=== PATIENT | female | born 1980 | race Caucasian/White ===

== ENCOUNTER 2016-03-08 11:35 | Emergency (ER) | payer OTHER ==
--- NOTE | 2016-03-08 11:41 | PDOC ---
History of Present Illness - General Chief Complaint: Respiratory Stated Complaint: COUGH, BODY ACHES Time Seen by Provider: 03/08/16 11:38 History Source: Patient Exam Limitations: No Limitations - History of Present Illness Initial Comments: 03/08/16 12:06 This is a 35-year-old female with no significant past medical history presented to emergency department with a complaint of cough and body aches. Patient states she was in her usual state of health until yesterday when she noted diffuse body aches, rhinorrhea, a dry cough. Patient noted a temperature of 103 today and because of this decided to come to the ER. Patient has not taken either Motrin or Tylenol. She attempted taking Mucinex DM for her symptoms which did not help. Patient did not receive a flu vaccination this year. Denies sick contacts or recent travel Patient denies dysuria, flank pain. Denies nausea, vomiting. Patient has noted diarrhea - 3 episodes of watery diarrhea yesterday. PMH: Denies PSH: Gastric sleeve, tubal ligation, tummy tuck Medication: Denies Social: Uses tobacco: 5 cigars per day, denies drug use or alcohol use GENERAL/CONSTITUTIONAL: Yes: fever, chills, weakness, loss of appetite. HEAD, EYES, EARS, NOSE AND THROAT: No: change in vision, ear pain, discharge, sore throat, throat swelling. CARDIOVASCULAR: No: chest pain, lightheadedness, palpitations, syncope RESPIRATORY: Yes: cough No: shortness of breath, wheezing, hemoptysis, stridor. GASTROINTESTINAL: Yes: diarrhea No: nausea, vomiting, abdominal cramping GENITOURINARY: No: dysuria, hematuria, frequency, urgency, flank pain. MUSCULOSKELETAL: Yes: Myalgias, back pain, No: joint pain, pain SKIN: No: lesions, pallor, rash or easy bruising. NEUROLOGIC: No: headache, vertigo, paresthesias, weakness ENDOCRINE: No: unexplained weight gain or loss HEMATOLOGIC/LYMPHATIC: No: anemia, easy bleeding, swelling nodes. GENERAL: The patient is in no acute distress, pt appears uncomfortable. HEAD: Normal with no signs of trauma. EYES: PERRLA, EOMI, sclera anicteric, conjunctiva clear. ENT: Ears normal, nares patent, oropharynx clear without exudates. Moist mucous membranes. NECK: Normal range of motion, supple without lymphadenopathy, JVD, or masses. LUNGS: Breath sounds equal, clear to auscultation bilaterally. No wheezes, and no crackles. HEART: Tachycardiac, regular rhythm, normal S1 and S2 without murmur ABDOMEN: Soft, nontender, normoactive bowel sounds. No guarding, no rebound. No masses palpable. EXTREMITIES: Normal range of motion, no edema. No clubbing or cyanosis. No erythema, or tenderness. NEUROLOGICAL: Cranial nerves II through XII grossly intact. Normal speech. No focal neurological deficits. MUSCULOSKELETAL: Back non-tender to palpation, no CVA tenderness SKIN: Warm, Dry, normal turgor, no rashes or lesions noted. 03/09/16 11:37 Past History - Past Medical History Allergies/Adverse Reactions: Allergies Allergy/AdvReac Type Severity Reaction Status Date / Time No Known Drug Allergies Allergy Verified 03/08/16 11:37 Home Medications: Ambulatory Orders Oseltamivir Phosphate [Tamiflu -] 75 mg PO BID #10 capsule 03/08/16 Anemia: Yes (MENSES RELATED) Asthma: Yes (SEASONAL) Diabetes: No GI Disorders: No Disorders: No Liver Disease: No Thyroid Disease: No - Surgical History Abdominal Surgery: Yes (TUMMY TUCK 2011, Gastric sleeve) - Immunization History Immunization Up to Date: Yes - Psycho/Social/Smoking Cessation Hx Anxiety: No Suicidal Ideation: No Smoking Status: Yes Smoking History: Current every day smoker Have you smoked in the past 12 months: Yes Number of Cigarettes Smoked Daily: 5 'Breaking Loose' booklet given: 11/28/15 Hx Alcohol Use: No Drug/Substance Use Hx: No Substance Use Type: None Medical Decision Making - Medical Decision Making 03/08/16 11:41 03/08/16 12:09 Will do Influenza swab Will do serum Will do CXR Will give Toradol and IV fluids Will re assess 03/08/16 14:34 Influenza + CXR negative Pt states she feels better Will discharge to home Follow up with PMD Clinical Impression: Influenza 03/09/16 11:37 *DC/Admit/Observation/Transfer Diagnosis at time of Disposition: Influenza A - Discharge Dispostion Disposition: HOME Condition at time of disposition: Improved Admit: No - Prescriptions Prescriptions: Oseltamivir Phosphate [Tamiflu -] 75 mg PO BID #10 capsule - Referrals Referrals: Mary Jo Briones NP [Primary Care Provider] - - Patient Instructions Printed Discharge Instructions: DI for Influenza -- Adult Additional Instructions: Ms. Pereira, You have influenza Please take tamiflu as prescribed Please take motrin or tylenol for fevers Please stay hydrated as much as possible Follow up with your primary care physician Return to the ER for any other concerns or complaints
[2016-03-08 11:44] VITALS: BP 124/85; PULSE 84; TEMP 98.5; BMI 25.2
[2016-03-08] MEDS ORDERED: SODIUM CHLORIDE 1,000 ML IV STA (12:05)
[2016-03-08] MEDS ORDERED: KETOROLAC TROMETHAMINE 30 MG/1 ML VIAL IVPUSH ONE (12:05)
[2016-03-08] MEDS ORDERED: KETOROLAC TROMETHAMINE 30 MG/1 ML VIAL ONE (12:34)
== END 2016-03-08 14:55 | disposition home or self-care (01) ==
LOC: FER 11:35
PROC: 3E033GC Introduction of Other Therapeutic Substance into Peripheral Vein, Percutaneous Approach (ICD-10-PCS; principal; 2016-03-08)
PROC: 3E0337Z Introduction of Electrolytic and Water Balance Substance into Peripheral Vein, Percutaneous Approach (ICD-10-PCS; 2016-03-08)
DX: J09.X2 Influenza due to identified novel influenza A virus with other respiratory manifestations (principal); F17.210 Nicotine dependence, cigarettes, uncomplicated; Z98.84 Bariatric surgery status; J45.998 Other asthma; D64.89 Other specified anemias
CPT/HCPCS: 71020-TC; 84703; 87804; 96361; 96374; 99284-25

== ENCOUNTER 2016-07-15 15:47 | Emergency (ER) | payer OTHER ==
[2016-07-15 16:12] VITALS: TEMP 98.3; BMI 23.3
[2016-07-15 19:26] LABS: URINE APPEARANCE CLEAR; URINE BILIRUBIN NEGATIVE (NEGATIVE); URINE BLOOD NEGATIVE (NEGATIVE); URINE COLOR STRAW; URINE GLUCOSE (UA) NEGATIVE (NEGATIVE); URINE KETONE NEGATIVE (NEGATIVE); URINE LEUK ESTERASE NEGATIVE (NEGATIVE); URINE NITRITE NEGATIVE (NEGATIVE); URINE PROTEIN NEGATIVE (NEGATIVE); URINE UROBILINOGEN NEGATIVE E.U./dl (0.2-1.0)
[2016-07-15] MEDS ORDERED: SODIUM CHLORIDE 1,000 ML IV STA (20:12)
--- NOTE | 2016-07-15 20:12 | PDOC ---
History of Present Illness - General History Source: Patient, Old Records Exam Limitations: No Limitations - History of Present Illness Initial Comments: The patient is a 35 year old female with no significant past medical history, who presents to the emergency department today for further evaluation of abdominal pain since yesterday. The patient notes that her pain has been worsening and states that it does not feel like a UTI because she is not experiencing any dysuria and the pain is worse than that of a UTI . She states the pain is located in her suprapubic region and reports associated abdominal pain only on palpation. She notes that she does not have a regular period because she has had a tubal ligation. The patient denies fever, chills, and sweats. The patient denies nausea, vomiting, and diarrhea. The patient denies chest pain, cough, and shortness of breath. PAST MEDICAL HISTORY: Gestational diabetes. PAST SURGICAL HISTORY: Gastric sleeve (s/p 105 lbs. Weight loss), Tubal Ligation. FAMILY HISTORY: No pertinent history reported SOCIAL HISTORY: None reported MEDICATIONS: Reviewed ALLERGIES: As per nursing notes <Lalo Maier - Last Filed: 07/15/16 23:49> <Pascale Goode - Last Filed: 07/17/16 02:24> - General Chief Complaint: Pain Stated Complaint: ABD PAIN, VOMITING Time Seen by Provider: 07/15/16 18:39 Past History <Lalo Maier - Last Filed: 07/15/16 23:49> - Past Medical History Anemia: Yes (MENSES RELATED) Asthma: Yes (SEASONAL) Diabetes: No GI Disorders: No Disorders: No Liver Disease: No Thyroid Disease: No - Surgical History Abdominal Surgery: Yes (TUMMY TUCK 2010, Gastric sleeve) - Immunization History Immunization Up to Date: Yes - Psycho/Social/Smoking Cessation Hx Anxiety: No Suicidal Ideation: No Smoking Status: Yes Smoking History: Current every day smoker Have you smoked in the past 12 months: Yes Number of Cigarettes Smoked Daily: 4 Information on smoking cessation initiated: Yes 'Breaking Loose' booklet given: 07/15/16 Hx Alcohol Use: No Drug/Substance Use Hx: No Substance Use Type: None <Pascale Goode - Last Filed: 07/17/16 02:24> - Past Medical History Allergies/Adverse Reactions: Allergies Allergy/AdvReac Type Severity Reaction Status Date / Time No Known Drug Allergies Allergy Verified 07/15/16 16:12 Home Medications: Ambulatory Orders NK [No Known Home Medication] 07/15/16 Review of Systems - Review of Systems Able to Perform ROS?: Yes Comments:: CONSTITUTIONAL: Absent: fever, chills, diaphoresis, generalized weakness, malaise, loss of appetite HEENT: Absent: rhinorrhea, nasal congestion, throat pain, throat swelling, difficulty swallowing, mouth swelling, ear pain, eye pain, visual Changes CARDIOVASCULAR: Absent: chest pain, syncope, palpitations, irregular heart rate, lightheadedness , peripheral edema RESPIRATORY: Absent: cough, shortness of breath, dyspnea with exertion, orthopnea, wheezing, stridor, hemoptysis GASTROINTESTINAL: Present: suprapubic pain, abdominal pain Absent: abdominal distension, nausea, vomiting, diarrhea, constipation, melena, hematochezia GENITOURINARY: Absent: dysuria, frequency, urgency, hesitancy, hematuria, flank pain, genital pain MUSCULOSKELETAL: Absent: myalgia, arthralgia, joint swelling SKIN: Absent: rash, itching, pallor HEMATOLOGIC/IMMUNOLOGIC: Absent: easy bleeding, easy bruising, lymphadenopathy, frequent infections ENDOCRINE: Absent: unexplained weight gain, unexplained weight loss, heat intolerance, cold intolerance NEUROLOGIC: Absent: headache, focal weakness or paresthesias, dizziness, unsteady gait, seizure, mental status changes, bladder or bowel incontinence PSYCHIATRIC: Absent: anxiety, depression, suicidal or homicidal ideation, hallucinations. <Lalo Maier - Last Filed: 07/15/16 23:49> *Physical Exam - Vital Signs Last Vital Signs Temp Pulse Resp BP Pulse Ox 98.3 F 75 17 135/80 100 07/15/16 16:11 07/15/16 16:11 07/15/16 16:11 07/15/16 16:11 07/15/16 16:11 - Physical Exam Comments: GENERAL: Well developed, well nourished. Awake and alert. No acute distress. HEENT: Normocephalic, atraumatic. PERRLA, EOMI. No conjunctival pallor. Sclera are non- icteric. Moist mucous membranes. Oropharynx is clear. NECK: Supple. Full ROM. No JVD. Carotid pulses 2+ and symmetric, without bruits. No thyromegaly. No lymphadenopathy. CARDIOVASCULAR: Regular rate and rhythm. No murmurs, rubs, or gallops. Distal pulses are 2+ and symmetric. PULMONARY: No evidence of respiratory distress. Lungs clear to auscultation bilaterally. No wheezing, rales or rhonchi. ABDOMINAL: (+) Suprapubic discomfort, diffuse mild abdominal tenderness on palpation. No rebound or guarding. No organomegaly. Normoactive bowel sounds. MUSCULOSKELETAL Normal range of motion at all joints. No bony deformities or tenderness. No CVA tenderness. EXTREMITIES: No cyanosis. No clubbing. No edema. No calf tenderness. SKIN: Warm and dry. Normal capillary refill. No rashes. No jaundice. NEUROLOGICAL: Alert, awake, appropriate. Cranial nerves 2-12 intact. No deficits to light touch and temperature in face, upper extremities and lower extremities. No motor deficits in the in face, upper extremities and lower extremities. Normoreflexic in the upper and lower extremities. Normal speech. Toes are down-going bilaterally. Gait is normal without ataxia. PSYCHIATRIC: Cooperative. Good eye contact. Appropriate mood and affect. <Lalo Maier - Last Filed: 07/15/16 23:49> - Vital Signs Last Vital Signs Temp Pulse Resp BP Pulse Ox 98.3 F 75 17 135/80 100 07/15/16 16:11 07/15/16 16:11 07/15/16 16:11 07/15/16 16:11 07/15/16 16:11 <Pascale Goode - Last Filed: 07/17/16 02:24> ED Treatment Course - LABORATORY CBC & Chemistry Diagram: 07/15/16 20:27 07/15/16 20:27 - ADDITIONAL ORDERS Additional order review: Laboratory Results 07/15/16 19:15 Urine Color Straw Urine Appearance Clear Urine pH 6.0 Urine Protein Negative Urine Glucose (UA) Negative Urine Ketones Negative Urine Blood Negative Urine Nitrite Negative Urine Bilirubin Negative Urine Urobilinogen Negative Ur Leukocyte Esterase Negative - RADIOLOGY Radiograph Interpretation: 07/15/16 23:49 EXAM#: TYPE/EXAM: RESULT: [id number] CT/ABDOMEN PELVIS CT WITH CONTR HISTORY PROVIDED: Right lower quadrant pain. Sequential axial images were obtained from the domes of the diaphragms through the symphysis pubis following the administration of intravenous contrast material. The lung bases are clear. The liver, spleen, pancreas, adrenal glands and kidneys demonstrate no significant abnormalities. The gallbladder is clear. There is no evidence of intra- abdominal or retroperitoneal lymphadenopathy or fluid collections. There is no evidence of pneumoperitoneum, bowel obstruction or intra-abdominal abscess. There is no CT evidence of acute appendicitis or diverticulitis. Examination of the pelvis demonstrates no evidence of pelvic masses, fluid collections or lymphadenopathy. There is no evidence of acute bony pathology. IMPRESSION: No evidence of appendicitis or acute pathology within the abdomen or pelvis. Reported By: Bandar Yancey MD 07/15/16 1395 <Lalo Maier - Last Filed: 07/15/16 23:49> - LABORATORY CBC & Chemistry Diagram: 07/15/16 20:27 07/15/16 20:27 - ADDITIONAL ORDERS Additional order review: Laboratory Results 07/15/16 19:15 Urine Color Straw Urine Appearance Clear Urine pH 6.0 Urine Protein Negative Urine Glucose (UA) Negative Urine Ketones Negative Urine Blood Negative Urine Nitrite Negative Urine Bilirubin Negative Urine Urobilinogen Negative Ur Leukocyte Esterase Negative <Pascale Goode - Last Filed: 07/17/16 02:24> Medical Decision Making - Medical Decision Making 07/17/16 02:22 Non 35-year-old female presented with complaints of lower abdominal pain worsened with urination or sexual intercourse. Urinalysis did not show any urinary tract infection. Imaging studies did not show any abdominal or pelvic surgical emergencies she will follow-up with her statement clerks supervisor <Pascale Goode - Last Filed: 07/17/16 02:24> *DC/Admit/Observation/Transfer - Attestations Scribe Attestion: Documentation prepared by Lalo Maire, acting as medical transcriptionist for Dr. Pascale Goode MD. <Lalo Maier - Last Filed: 07/15/16 23:49> <Pascale Goode - Last Filed: 07/17/16 02:24> Diagnosis at time of Disposition: Abdominal pain Qualifiers: Abdominal location: lower abdomen, unspecified Qualified Code(s): R10.30 - Lower abdominal pain, unspecified - Discharge Dispostion Disposition: HOME Condition at time of disposition: Stable - Referrals Referrals: Mary Jo Briones NP [Primary Care Provider] - Robert Choudhary MD [Staff Physician] - - Patient Instructions Printed Discharge Instructions: DI for Abdominal Pain-Adult Additional Instructions: please followup with your statement clerks supervisor
[2016-07-15 20:41] LABS: BASOPHIL 0.4 % (0-2.0); EOSINOPHIL 6.7 % (0-4.5); MCH 29.4 pg (25.7-33.7); MCHC 33.3 g/dl (32.0-36.0); MEAN CELL VOLUME 88.4 fl (80-96); MEAN PLT VOLUME 7.6 fl (7.5-11.1); PLATELET COUNT 261 K/MM3 (134-434); RDW 12.5 % (11.6-15.6)
[2016-07-15 21:11] LABS: ALBUMIN 3.9 g/dl (3.4-5.0); ANION GAP 9 (8-16); BILIRUBIN,TOTAL 0.6 mg/dL (0.2-1.0); CALCIUM 8.4 mg/dL (8.5-10.1); CO2 26 mmol/L (21-32); CREATININE 0.4 mg/dL (0.55-1.02); GLUCOSE,RANDOM 78 mg/dL (74-106); SGPT/ALT 16 U/L (12-78); TOT PROT 6.8 g/dl (6.4-8.2)
[2016-07-15 21:12] LABS: ALK PHOS 40 U/L (45-117)
[2016-07-15 21:27] LABS: SGOT/AST 19 U/L (15-37)
[2016-07-15] MEDS ORDERED: morphine CARPU-JECT 2 MG/1 ML DISP.SYRIN ONE (22:36)
[2016-07-15] MEDS ORDERED: morphine CARPU-JECT 2 MG/1 ML DISP.SYRIN IVPUSH ONE (22:47)
[2016-07-15 22:52] VITALS: BP 133/74; PULSE 78
== END 2016-07-16 00:13 | disposition home or self-care (01) ==
LOC: JER 15:47
PROC: 3E0337Z Introduction of Electrolytic and Water Balance Substance into Peripheral Vein, Percutaneous Approach (ICD-10-PCS; principal; 2016-07-15)
PROC: 3E033NZ Introduction of Analgesics, Hypnotics, Sedatives into Peripheral Vein, Percutaneous Approach (ICD-10-PCS; 2016-07-15)
DX: R10.30 Lower abdominal pain, unspecified (principal); Z98.84 Bariatric surgery status; F17.210 Nicotine dependence, cigarettes, uncomplicated
CPT/HCPCS: 36415; 74177-TC; 80053; 81003; 83690; 84703; 85025; 87086; 96361; 96374; 99282-25

== ENCOUNTER 2016-08-02 07:09 | Day surgery (SDC) | payer OTHER ==
[2016-07-31 16:49] VITALS: BMI 23.9
[2016-08-02] MEDS ORDERED: MIDAZOLAM HCL 2 MG/2 ML SINGLE DOSE VIAL ONE ×2 (08:37)
[2016-08-02] MEDS ORDERED: PROPOFOL 20 ML ONE ×2 (08:37)
[2016-08-02] MEDS ORDERED: IBUPROFEN 800 MG/8 ML IJ IVPB PRN (08:40)
--- NOTE | 2016-08-02 08:40 | HP ---
History & Physical Update - History History: No Change - Physical Physical: No Change - Assessment Assessment: No Change - Plan Plan: No Change
[2016-08-02] MEDS ORDERED: ACETAMINOPHEN 1000 MG/100 ML VIAL (NON FORMULARY) IVPB ONE (08:41)
[2016-08-02] MEDS ORDERED: DEXTROSE 5%-0.45% SALINE 1,000 ML IV SCH (08:45)
[2016-08-02] MEDS ORDERED: DESFLURANE GAS 240 ML BOTTLE IH ONE (08:51)
[2016-08-02] MEDS ORDERED: ceFAZolin SODIUM 1 GM VIAL IVPB ONE (08:52)
[2016-08-02] MEDS ORDERED: ceFAZolin SODIUM 1 GM VIAL ONE (09:10)
[2016-08-02] MEDS ORDERED: SODIUM CHLORIDE 0.9% P/F 10 ML VIAL IJ ONE (09:10)
[2016-08-02] MEDS ORDERED: ONDANSETRON 4 MG/2 ML VIAL IVPUSH PRN (09:29)
[2016-08-02] MEDS ORDERED: PROMETHAZINE HCL 25 MG/1 ML VIAL IVPUSH PRN (09:29)
[2016-08-02] MEDS ORDERED: LACTATED RINGERS SOLUTION 1,000 ML IV SCH (09:30)
--- NOTE | 2016-08-02 09:31 | OP ---
Operative Note - Note: Operative Date: 08/02/16 Pre-Operative Diagnosis: bladder mass Operation: cysto, bladder biopsy Findings: see dictation Post-Operative Diagnosis: Same as Pre-op
[2016-08-02] MEDS ORDERED: ACETAMINOPHEN INJECTION 100 ML IVPB ONE (10:03)
--- NOTE | 2016-08-02 10:34 | OP ---
DATE OF OPERATION: 08/02/2016 PREOPERATIVE DIAGNOSIS: Bladder mass. POSTOPERATIVE DIAGNOSIS: Bladder mass. PROCEDURE: Cystoscopy and biopsy of bladder mass. FINDINGS: Mass along the ureteric ridge just medial to the left ureteral orifice. This appears to be consistent with the usual appearance of a ureterocele. Mucosa was normal. BIOPSIES: Bladder mass. SURGEON: Russel Guidry MD ANESTHESIA: General, Dr. Walton. ESTIMATED BLOOD LOSS: Minimal. PREOPERATIVE INDICATIONS: The patient is a 35-year-old female with incidentally found bladder mass on an ultrasound. CT scan was negative. She comes to the OR. DESCRIPTION OF PROCEDURE: The patient was brought to the OR. Placed on the table in the supine position. Given general anesthesia and IV antibiotics and placed in the modified lithotomy position. The groin was prepped and draped sterilely. A time-out was performed. Cystoscopy was performed. The urethra appeared to be normal. The bladder itself had some hyperemia throughout; however, no tumors or stones were seen. There is an elevated mass seen along the ureteric ridge medial to the left ureteral orifice. This appears to be consistent with the placement of a ureterocele. There is a family history of a ureterocele. The Ricco biopsy forceps were used to biopsy the surface of this mass, and the biopsy area was then fulgurated with Bovie electrode. Good hemostasis was maintained. The bladder was emptied. The patient was awoken up. RUSSEL GUIDRY M.D. [id number]
[2016-08-02 11:15] VITALS: TEMP 97.6
[2016-08-02 13:08] VITALS: BP 115/70; PULSE 59
--- NOTE | 2016-08-05 11:54 | PATH ---
Surgical Pathology Report Patient Name: AYDEN LEMA [facility]. Rec. #: [id number] /Age/Gender: 1980 (Age: 35) / F Account: [id number] Location: U SURGICAL Taken: 08/02/2016 Received: 08/02/2016 Reported: 08/05/2016 Physicians: Russel Guidry M.D. Specimen(s) Received BLADDER BIOPSY Clinical History Bladder mass Final Diagnosis BLADDER MASS, BIOPSY: FOCALLY HYPERPLASTIC, BENIGN APPEARING UROTHELIAL MUCOSA WITH CHRONIC INFLAMMATION WITH LAMINA PROPRIA EXPANSION, EDEMA AND VASCULAR CONGESTION, AND FOCAL FEATURES SUGGESTIVE OF CYSTITIS CYSTICA. NO CARCINOMA IDENTIFIED. NO MUSCULARIS PROPRIA PRESENT. Electronically Signed Rai Barton M.D. Gross Description Received in formalin, labeled "bladder mass" is a tinoco, irregular portion of soft tissue measuring 0.4 cm in greatest dimension. The specimen is submitted in toto in one cassette. 08/02/201608/02/2016
== END 2016-08-02 12:30 | disposition home or self-care (01) ==
LOC: JASU-SURG 07:09
PROVIDERS: ATTEND Urology
PROC: 0TBB8ZX Excision of Bladder, Via Natural or Artificial Opening Endoscopic, Diagnostic (ICD-10-PCS; principal; 2016-08-02 08:30)
DX: D30.3 Benign neoplasm of bladder (principal)
CPT/HCPCS: 84703; 88305-TC; 94760

== ENCOUNTER 2016-09-13 07:02 | Day surgery (SDC) | payer OTHER ==
[2016-09-11 09:52] VITALS: BMI 23.9
[2016-09-13] MEDS ORDERED: IBUPROFEN 800 MG/8 ML IJ IVPB PRN (08:00)
[2016-09-13] MEDS ORDERED: DEXTROSE 5%-0.45% SALINE 1,000 ML IV SCH (08:00)
[2016-09-13] MEDS ORDERED: ACETAMINOPHEN 1000 MG/100 ML VIAL (NON FORMULARY) IVPB ONE ×2 (08:00→09:40)
--- NOTE | 2016-09-13 08:00 | HP ---
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: Alzheimer's, CVA, Dementia, Migraine, Multiple Sclerosis, Peripheral Neuropathy, Parkinson's, Seizure, Syncope, TIA, Vertigo, Other Cardiovascular: No: AFIB, Aneurysm, Aortic Insufficiency, Aortic Stenosis, CAD, CHF, Deep Vein Thrombosis, HTN, Hyperlipdemia, [place], Mitral Insufficiency, Mitral Stenosis, Murmur, Pulmonary Hypertension, Other Pulmonary: No: Asthma, Bronchitis, Cancer, COPD, O2 Dependent, Pneumonia, Previously Intubated, Pulmonary Embolus, Pulmonary Fibrosis, Sleep Apnea, Other Gastrointestinal: No: Ascites, Cancer, Constipation, Crohn's Disease, Diverticulitis, Diverticulosis, Esophageal Varices, Gastritis, GERD, GI Bleed, Hemorrhoids, Hiatal Hernia, Inflamatory Bowel Disease, Irritable Bowel Disease, Pancreatitis, Peptic Ulcer Disease, Ulcerative Colitis, Other Renal/: Yes: Other (left flank pain.) ...LMP: 12/16/11 - Current Medications Current Medications: Home Medications Medication Instructions Recorded Oxycodone HCl/Acetaminophen 1 tab PO Q4H PRN #10 tablet MDD 6 08/02/16 [Percocet 5-325 mg Tablet -] Satellite Physical Exam - Physical Examination Vital Signs: Vital Signs Period Temp Pulse Resp BP Sys/Byrnes Pulse Ox Last 24 Hr 98.2 F 60 20 122/73 100 General Appearance: Well Nourished, Well Developed, Alert & Oriented x3 Abdomen: Soft, No CVA (left CVA) Satellite Impression/Plan - Impression/Plan Impression: left ureterocele Operative Procedure: incision of left ureterocele Date to be Performed: 09/13/16
[2016-09-13] MEDS ORDERED: ceFAZolin SODIUM 1 GM VIAL IVPB ONE (08:36)
[2016-09-13] MEDS ORDERED: ISOSULFAN BLUE 10 MG/ML VIAL SQ ONE (08:40)
[2016-09-13] MEDS ORDERED: LIDOCAINE HCL 2% JELLY 10 ML CARTRIDGE ONE (09:19)
[2016-09-13] MEDS ORDERED: LIDOCAINE HCL 2% JELLY 10 ML CARTRIDGE TP ONE (09:20)
[2016-09-13] MEDS ORDERED: ACETAMINOPHEN INJECTION 100 ML IVPB ONE (09:36)
[2016-09-13] MEDS ORDERED: oxyCODONE HCL 5 MG TABLET PO PRN (10:26)
[2016-09-13] MEDS ORDERED: ONDANSETRON 4 MG/2 ML VIAL IVPUSH PRN (10:26)
[2016-09-13] MEDS ORDERED: LACTATED RINGERS SOLUTION 1,000 ML IV SCH (10:30)
[2016-09-13 17:23] VITALS: BP 135/83; PULSE 83; TEMP 98
--- NOTE | 2016-11-26 14:07 | OP ---
DATE OF OPERATION: 09/13/2016 PREOPERATIVE DIAGNOSIS: Ureterocele. POSTOPERATIVE DIAGNOSIS: Ureterocele. PROCEDURE: Cystoscopy and incision of ureterocele. ANESTHESIA: General. PREOPERATIVE INDICATIONS: The patient is a 35-year-old female with persistent pelvic pain as well as some left-sided back pain. She was found to have a ureterocele on imaging. She comes to the OR today for incision of ureterocele. OPERATION: The patient was brought to the OR, placed on the table in the supine position, given general anesthesia and IV antibiotics, and placed in the modified lithotomy position. The groin was prepped and draped sterilely. Cystoscopy was performed. What appeared to be ureterocele along the left elizabet-trigone along the ureteral ridge was identified. A small pinhole orifice was noted on the medial aspect of this elevation. Using a cold knife, this was placed into the small pinhole and incised laterally. This resulted in an open ureteral orifice. Areas of bleeding were seen and these were fulgurated. At the time, hemostasis was achieved. At 5:17, the patient was woken up. Dorene [id number]
== END 2016-09-13 13:15 | disposition home or self-care (01) ==
LOC: JASU-SURG 07:02
PROVIDERS: ATTEND Urology
PROC: 0T578ZZ Destruction of Left Ureter, Via Natural or Artificial Opening Endoscopic (ICD-10-PCS; principal; 2016-09-13 08:00)
DX: N28.89 Other specified disorders of kidney and ureter (principal)
CPT/HCPCS: 76000-TC; 76775-TC; 84703; 94760

== ENCOUNTER 2016-09-13 22:22 | Inpatient (IN) | payer OTHER ==
[2016-09-13 22:45] VITALS: BMI 23.8
[2016-09-13] MEDS ORDERED: ONDANSETRON 4 MG/2 ML VIAL IVPB ONE (23:02)
[2016-09-13] MEDS ORDERED: morphine CARPU-JECT 4 MG/1 ML DISP.SYRIN IVPUSH ONE (23:02)
[2016-09-13] MEDS ORDERED: morphine CARPU-JECT 4 MG/1 ML DISP.SYRIN ONE (23:02)
[2016-09-13] MEDS ORDERED: ONDANSETRON 4 MG/2 ML VIAL ONE (23:05)
[2016-09-13 23:21] LABS: BASOPHIL 0.4 % (0-2.0); EOSINOPHIL 0.4 % (0-4.5); MCH 29.8 pg (25.7-33.7); MCHC 33.9 g/dl (32.0-36.0); MEAN CELL VOLUME 87.9 fl (80-96); MEAN PLT VOLUME 7.8 fl (7.5-11.1); NEUTROPHILS 77.1 % (42.8-82.8); PLATELET COUNT 203 K/MM3 (134-434); RDW 12.4 % (11.6-15.6); WHITE BLOOD COUNT 9.8 K/mm3 (4.0-10.0)
--- NOTE | 2016-09-13 23:24 | PDOC ---
History of Present Illness - General Chief Complaint: Pain Stated Complaint: PAIN Time Seen by Provider: 09/13/16 22:39 History Source: Patient, Family Exam Limitations: No Limitations - History of Present Illness Travel History: No Initial Comments: 09/13/16 23:24 35yo Female patient w/ PmHx of Ureterocele presents to ED c/o inability to urinate s/p Incision of left ureterocele by Dr. Guidry. Patient states abdominal pain sudden onset and has not been able to void since 3pm today. Patient contact plastic production machine setter MD Dr. Harp who instructed patient to report to ED. Patient denies fever, CP, diff breathing, back pain, n/v/d or any other complaints. Timing/Duration: reports: getting worse Quality: reports: severe Abdominal Pain Onset Location: reports: suprapubic Pain Radiation: reports: no radiation Activities at Onset: denies: none, exertion, emotional upset, rest, sleep, no specific activity, eating, working, sexual intercourse, other Treatment Prior to Arrive: worse with: analgesics, antacids, cold pack, heat, laxative, enema, other Aggravating Factors: worse with: None, Defecation, Eating, Emotional upset, Exertion, [place], Movement, Voiding, Change in position Alleviating Factors: worse with: None, Belching, Shallow Breathing, Defecation, Eating, Holding Breath, Passing Gas, Change in Position, Rest, Voiding, Vomiting Past History - Travel Traveled outside of the country in the last 30 days: No Close contact w/someone who was outside of country & ill: No - Past Medical History Allergies/Adverse Reactions: Allergies Allergy/AdvReac Type Severity Reaction Status Date / Time No Known Drug Allergies Allergy Verified 09/13/16 07:38 Home Medications: Ambulatory Orders Oxycodone HCl/Acetaminophen [Percocet 10-325 mg Tablet] 1 each PO Q4HWA PRN #20 tablet MDD 6 09/13/16 Anemia: Yes (MENSES RELATED) Asthma: Yes Cancer: No Cardiac Disorders: No CVA: No COPD: No CHF: No Dementia: No Diabetes: No GI Disorders: No Disorders: No HTN: No Hypercholesterolemia: No Liver Disease: No Seizures: No Thyroid Disease: (WAS DISCHARGED AND CAME BACK STAYED 4 DAYS) - Surgical History Abdominal Surgery: Yes (BAKARI LOPEZ 2010 GASTRIC SLEEVE) - Reproductive History Is Patient Now?: No - Immunization History Immunization Up to Date: Yes - Psycho/Social/Smoking Cessation Hx Anxiety: No Suicidal Ideation: No Smoking Status: Yes Smoking History: Unknown if ever smoked Have you smoked in the past 12 months: Yes Number of Cigarettes Smoked Daily: 4 Information on smoking cessation initiated: No 'Breaking Loose' booklet given: 09/11/16 Hx Alcohol Use: No Drug/Substance Use Hx: No Substance Use Type: None Hx Substance Use Treatment: No Abd/GI Specific PMHX - Complaint Specific PMHX Colitis: No Diverticulitis: No Gall Bladder Disease: No GERD: No Hepatitis: No Irritable Bowel Synd (IBS): No Pancreatitis: No GI Ulcer Disease: No Review of Systems - Review of Systems Able to Perform ROS?: Yes Is the patient limited Lithuanian proficient: No ABD/GI: Yes: Abdominal Distended, Other (Abdominal/Supra Pubic Tenderness/Pain) . No: Constipated, Diarrhea, Nausea, Poor Appetite, Poor Fluid Intake, Vomiting : Yes: Dysuria, Hematuria All Other Systems: Reviewed and Negative *Physical Exam - Vital Signs Last Vital Signs Temp Pulse Resp BP Pulse Ox 98.4 F 68 17 132/80 100 09/13/16 22:35 09/13/16 22:35 09/13/16 22:35 09/13/16 22:35 09/13/16 22:35 - Physical Exam General Appearance: Yes: Nourished, Appropriately Dressed, Apparent Distress, Severe Distress. No: Mild Distress, Moderate Distress Neck: positive: Trachea midline, Normal Thyroid, Supple. negative: Stridor, Lymphadenopathy (R), Lymphadenopathy (L) Respiratory/Chest: positive: Lungs Clear, Normal Breath Sounds. negative: Chest Tender, Respiratory Distress, Accessory Muscle Use, Labored Respiration, Rapid RR Cardiovascular: positive: Regular Rhythm, Regular Rate Gastrointestinal/Abdominal: positive: Normal Bowel Sounds, Tender, Distended, Guarding, Tenderness (Supra Pubic). negative: Soft (Firm) Musculoskeletal: positive: Normal Inspection. negative: CVA Tenderness Extremity: positive: Normal Capillary Refill, Normal Inspection, Normal Range of Motion. negative: Pedal Edema, Swelling, Calf Tenderness, Erythema, Inflammation Integumentary: positive: Normal Color, Dry, Warm. negative: Erythema, Moist, Hives, Swelling Neurologic: positive: canvas marker II-XII NML intact, Fully Oriented, Alert, Normal Mood/ Affect, Normal Response, Motor Strength 07/05 ED Treatment Course - LABORATORY CBC & Chemistry Diagram: 09/13/16 23:05 09/13/16 23:05 - Medications Given in the ED: ED Medications Discontinued Medications Generic Name Dose Route Start Last Admin Trade Name Freq PRN Reason Stop Dose Admin Morphine Sulfate 4 mg 09/13/16 23:02 09/13/16 23:04 Morphine Injection - IVPUSH 09/13/16 23:03 4 mg ONCE ONE Administration Ondansetron HCl 4 mg 09/13/16 23:02 09/13/16 23:06 Zofran Injection IVPB 09/13/16 23:03 4 mg ONCE ONE Administration *DC/Admit/Observation/Transfer Diagnosis at time of Disposition: Bladder outflow obstruction Hematuria Qualifiers: Hematuria type: gross Qualified Code(s): R31.0 - Gross hematuria - Discharge Dispostion Condition at time of disposition: Fair Admit: Yes
[2016-09-13 23:50] LABS: ALBUMIN 3.1 g/dl (3.4-5.0); ALK PHOS 36 U/L (45-117); ANION GAP 8 (8-16); BILIRUBIN,TOTAL 0.3 mg/dL (0.2-1.0); CALCIUM 7.7 mg/dL (8.5-10.1); CO2 24 mmol/L (21-32); CREATININE 0.4 mg/dL (0.55-1.02); GLUCOSE,RANDOM 129 mg/dL (74-106); SGOT/AST 13 U/L (15-37); SGPT/ALT 13 U/L (12-78); TOT PROT 5.6 g/dl (6.4-8.2)
[2016-09-13 23:55] LABS: URINE APPEARANCE CLOUDY; URINE BILIRUBIN NEGATIVE (NEGATIVE); URINE GLUCOSE (UA) 3+ (NEGATIVE); URINE KETONE NEGATIVE (NEGATIVE); URINE LEUK ESTERASE NEGATIVE (NEGATIVE); URINE NITRITE NEGATIVE (NEGATIVE); URINE UROBILINOGEN NEGATIVE mg/dL (0.2-1.0)
[2016-09-13 23:56] LABS: URINE BLOOD 1+ (NEGATIVE); URINE PROTEIN 3+ (NEGATIVE)
[2016-09-13 23:57] LABS: URINE COLOR YELLOW
[2016-09-14 00:10] LABS: URINE RBC 25 /hpf (0-3); URINE WBC <1 /hpf (3-5)
--- NOTE | 2016-09-14 00:24 | PDOC ---
*Physical Exam - Vital Signs Last Vital Signs Temp Pulse Resp BP Pulse Ox 98.4 F 68 17 132/80 100 09/13/16 22:35 09/13/16 22:35 09/13/16 22:35 09/13/16 22:35 09/13/16 22:35 ED Treatment Course - LABORATORY CBC & Chemistry Diagram: 09/14/16 07:50 09/14/16 07:50 - ADDITIONAL ORDERS Additional order review: Laboratory Results 09/13/16 09/13/16 23:18 23:05 Sodium 143 Potassium 3.7 Chloride 111 H Carbon Dioxide 24 Anion Gap 8 BUN 8 Creatinine 0.4 L Creat Clearance w eGFR > 60 Random Glucose 129 H D Calcium 7.7 L Total Bilirubin 0.3 D AST 13 L D ALT 13 Alkaline Phosphatase 36 L Total Protein 5.6 L Albumin 3.1 L D Urine Color Yellow Urine Appearance Cloudy Urine pH 7.0 Urine Protein 3+ H Urine Glucose (UA) 3+ H Urine Ketones Negative Urine Blood 1+ H Urine Nitrite Negative Urine Bilirubin Negative Urine Urobilinogen Negative Ur Leukocyte Esterase Negative Urine RBC 25 Urine WBC <1 Urine HCG, Qual Negative 09/13/16 23:05 RBC 3.65 MCV 87.9 MCHC 33.9 RDW 12.4 MPV 7.8 Neutrophils % 77.1 D Lymphocytes % 13.9 D Monocytes % 8.2 Eosinophils % 0.4 D Basophils % 0.4 - Medications Given in the ED: ED Medications Discontinued Medications Generic Name Dose Route Start Last Admin Trade Name Franklin PRN Reason Stop Dose Admin Morphine Sulfate 4 mg 09/13/16 23:02 09/13/16 23:04 Morphine Injection - IVPUSH 09/13/16 23:03 4 mg ONCE ONE Administration Ondansetron HCl 4 mg 09/13/16 23:02 09/13/16 23:06 Zofran Injection IVPB 09/13/16 23:03 4 mg ONCE ONE Administration Medical Decision Making - Medical Decision Making 09/14/16 00:24 Pt seen by the Advanced Practice Provider under my direct supervision Ancillary studies reviewed I agree with plan as outlined by the Advanced Practice Provider SHAVONNE Angel *DC/Admit/Observation/Transfer Diagnosis at time of Disposition: Hematuria, Bladder outlet obstruction - Discharge Dispostion Condition at time of disposition: Fair
[2016-09-14 00:38] LABS: INR 1.14 (0.82-1.09); PROTHROMBIN TIME (PATIENT) 12.6 SEC (9.98-11.88)
[2016-09-14 00:41] LABS: ACTIVATED PTT 31.6 SECONDS (26.9-34.4)
[2016-09-14] MEDS ORDERED: HYDROmorphone HCL CARPU-JECT 1 MG/1 ML DISP.SYRIN IVPUSH ONE (02:03)
[2016-09-14] MEDS ORDERED: HYDROmorphone HCL CARPU-JECT 1 MG/1 ML DISP.SYRIN ONE ×2 (02:04→03:16)
[2016-09-14] MEDS ORDERED: SODIUM CHLORIDE 1,000 ML IV STA (02:24)
[2016-09-14] MEDS ORDERED: HYDROmorphone HCL CARPU-JECT 1 MG/1 ML DISP.SYRIN IVPB STA (03:15)
--- NOTE | 2016-09-14 03:42 | HP ---
CHIEF COMPLAINT: hematuria PCP: Dr. Melida Weston HISTORY OF PRESENT ILLNESS: 35 yr old woman with a history of urinary hesitancy/dysuria presented to ED with suprapubic pain and edna hematuria since 3 pm Friday. She underwent an outpatient procedure(incision of left ureterocele 09/13/2016) without complications. She began having hematuria with increased frequency of urination( every 2 mins) with pain around 3pm, initially she thought it was expected given her earlier procedure, then she began to have intractable suprapubic pain 10/10 not relieved by percocet and with bleeding from her urethera that she felt was not combined with urine. Her drove her to the ED. started having chills in the ED. has not had a bowel movement since the procedure. Denies fever, n/v, headache, sob, vaginal discharge. ED course: Patient's pain improved when wilder was placed and required several administrations of dilauded for full relief. SHAVONNE Angel discussed case with Dr. Harp, who recommended to place wilder with continous bladder irrigation, keep pt NPO and she will be evaluated tomorrow by urology. HOME MEDICATIONS: Home Medications Medication Instructions Recorded Oxycodone HCl/Acetaminophen 1 each PO Q4HWA PRN #20 tablet MDD 09/13/16 [Percocet 10-325 mg Tablet] 6 REVIEW OF SYSTEMS CONSTITUTIONAL: Present: chills, Absent: fever, diaphoresis, generalized weakness, malaise, loss of appetite, weight change CARDIOVASCULAR: Absent: chest pain, syncope, palpitations, irregular heart rate, lightheadedness , peripheral edema RESPIRATORY: Absent: cough, shortness of breath, GASTROINTESTINAL: Present: suprapubic distention and pain Absent: nausea, vomiting, diarrhea, constipation, melena, hematochezia GENITOURINARY: Present: dysuria, frequency, hematuria Absent: urgency, hesitancy, flank pain, genital pain PHYSICAL EXAMINATION GENERAL: Awake, alert, and fully oriented, in no acute distress. HEAD: Normal with no signs of trauma. EYES: Pupils equal, round and reactive to light, extraocular movements intact, sclera anicteric, conjunctiva clear. EARS, NOSE, THROAT: Ears normal, nares patent, oropharynx clear without exudates. Moist mucous membranes. NECK: Normal range of motion, supple without lymphadenopathy, JVD, or masses. LUNGS: Breath sounds equal, clear to auscultation bilaterally. No wheezes, and no crackles. No accessory muscle use. HEART: Regular rate and rhythm, normal S1 and S2 without murmur, rub or gallop. ABDOMEN: Soft, nontender, not distended, normoactive bowel sounds, no guarding, no rebound, no masses. well healed scars. obturator and psoas' negative MUSCULOSKELETAL: Normal range of motion at all joints. No bony deformities or tenderness. No CVA tenderness. UPPER EXTREMITIES: 2+ radial pulses, warm, well-perfused. No cyanosis. No clubbing. No peripheral edema. LOWER EXTREMITIES: 2+ dp pulses, warm, well-perfused. No calf tenderness. No peripheral edema. NEUROLOGICAL: Cranial nerves II-XII intact. Normal speech. 5/5 handgrip, 5/5 hip extension. ASSESSMENT/PLAN: 35 yr old woman s/p recent incision of ureterocele presents with intractable suprapubic pain and hematuria. #Hematuria - likely due to insicion of ureterocele - wilder with continuous bladder irrigation - renal, bladder ultrasound - pt required 24fr wilder change x3 due to clots causing intractable pain, Dr. Harp called. He will be coming to see her now to take her to the OR now for cystoscopy, no requirement for imaging prior, low suspicion for bladder perforation or abscess #Pain - likely due to clots in wilder causing outflow obstruction, continue CBI with wilder flushing and replacement until seen by Dr. Harp - dilaudid 1mg prn #dvt - contraindicated for ac due to hematuria, scd's #diet - npo due to plan for OR Visit type - Emergency Visit Emergency Visit: Yes ED Registration Date: 09/13/16 Care time: The patient presented to the Emergency Department on the above date and was hospitalized for further evaluation of their emergent condition. - New Patient This patient is new to me today: Yes Date on this admission: 09/13/16 - Critical Care Critical Care patient: No
[2016-09-14] MEDS ORDERED: SODIUM CHLORIDE 1,000 ML IV SCH ×2 (03:45→08:03)
[2016-09-14] MEDS: HYDROmorphone HCL CARPU-JECT 1 MG/1 ML DISP.SYRIN IVPUSH STA ×2 (03:53→04:12)
--- NOTE | 2016-09-14 03:58 | HP ---
CHIEF COMPLAINT: hematuria for past 12 hours PCP: Melida Weston HISTORY OF PRESENT ILLNESS: 35 year old F with PMH recent incision of ureterocele (done yesterday morning) presents to ED after she started noticing blood in her urine yesterday at 3pm. As per patient, she had hematuria with clumping and frequency- she was urinating every two minutes. Her hematuria was accompanied with severe knife- like suprapubic, nonradiating pain during this time. The pain was a 10/10 when urinating, and a 9/10 when not urinating. Pt took one perkoset, but it did not alleviate it. She has also felt lightheaded during this time. Since the pain was so severe, she tried to reach out to her surgeon, Dr. Guidry. She was unable to get in touch with him, but his colleague told her to come to the ED. Denies fever, chills, chest pain, N/V/D, back pain, or blurry vision. ER course was notable for: (1) excessive hematuria (2) urine: 3+urine protein, blood, 3+ glucose (3) was given dilaudid and morphine in ED Recent Travel: no PAST MEDICAL HISTORY: ureterocele, asthma, gestational diabetes PAST SURGICAL HISTORY: 2 C-sections, tummy tuck, L ureteral stent for kidney stone (2 years ago), gastric sleeve, hemorrhoidectomy Social History: Smoking: has smoked 8 cigarettes a day for 21 years Alcohol: socially Drugs: denies Family History: Brother: stage 3 CKD, HTN. Mother- HTN Allergies No Known Drug Allergies Allergy (Verified 09/13/16 07:38) HOME MEDICATIONS: Home Medications Medication Instructions Recorded Oxycodone HCl/Acetaminophen 1 each PO Q4HWA PRN #20 tablet MDD 09/13/16 [Percocet 10-325 mg Tablet] 6 REVIEW OF SYSTEMS CONSTITUTIONAL: Absent: fever, chills, diaphoresis, generalized weakness, malaise, loss of appetite, weight change HEENT: Absent: rhinorrhea, nasal congestion, throat pain, throat swelling, difficulty swallowing, mouth swelling, ear pain, eye pain, visual changes CARDIOVASCULAR: +lightheadedness Absent: chest pain, syncope, palpitations, irregular heart rate, lightheadedness , peripheral edema RESPIRATORY: Absent: cough, shortness of breath, dyspnea with exertion, orthopnea, wheezing, stridor, hemoptysis GASTROINTESTINAL: Absent: abdominal pain, abdominal distension, nausea, vomiting, diarrhea, constipation, melena, hematochezia GENITOURINARY: +dysuria, +frequency, +hematuria Absent: dysuria, frequency, urgency, hesitancy, hematuria, flank pain, genital pain MUSCULOSKELETAL: Absent: myalgia, arthralgia, joint swelling, back pain, neck pain SKIN: Absent: rash, itching, pallor HEMATOLOGIC/IMMUNOLOGIC: Absent: easy bleeding, easy bruising, lymphadenopathy, frequent infections ENDOCRINE: Absent: unexplained weight gain, unexplained weight loss, heat intolerance, cold intolerance NEUROLOGIC: Absent: headache, focal weakness or paresthesias, dizziness, unsteady gait, seizure, mental status changes, bladder or bowel incontinence PSYCHIATRIC: Absent: anxiety, depression, suicidal or homicidal ideation, hallucinations. PHYSICAL EXAMINATION GENERAL: Awake, alert, and fully oriented, screaming in pain when urinating HEAD: Normal with no signs of trauma. EYES: Pupils equal, round and reactive to light, extraocular movements intact, sclera anicteric, conjunctiva clear. EARS, NOSE, THROAT: Oropharynx clear without exudates. NECK: Normal range of motion, supple without lymphadenopathy, JVD, or masses. LUNGS: Breath sounds equal, clear to auscultation bilaterally. No wheezes, and no crackles. No accessory muscle use. HEART: Regular rate and rhythm, normal S1 and S2 without murmur, rub or gallop. ABDOMEN: Soft, nontender, not distended, normoactive bowel sounds, no guarding, no rebound, no masses. (pt had just dilaudid prior to examination), no rebound tenderness, no CVA tenderness MUSCULOSKELETAL: Normal range of motion at all joints. No bony deformities or tenderness. No CVA tenderness. UPPER EXTREMITIES: 2+ radial pulses, no peripheral edema. LOWER EXTREMITIES: 2+ posterior tibial pulses, no calf tenderness. No peripheral edema. NEUROLOGICAL: Cranial nerves II-XII intact. ASSESSMENT/PLAN: 35 year old F with PMH incision of ureterocele (done yesterday morning) presents to ED after she started noticing blood in her urine yesterday at 3pm. Patient is being admitted for hematuria secondary to s/p ureterocele incision. 1. Hematuria secondary to s/p ureterocele incision -Souza changed three times due to clots, continue to flush -s/p ureterocele incision done on Friday morning -monitor CBC, BMP -hydration IV NS 75 mls/hr -NPO for possible ureteral stent placement tomorrow -Dilaudid 1mg PRN -Renal, bladder U/S -Cystoscopy stat f/u 2. Asthma -has not had recent asthma exacerbations -not active for this admission 3. DVT prophylaxis -bleeding so SCD's Visit type - Emergency Visit Emergency Visit: Yes ED Registration Date: 09/14/16 Care time: The patient presented to the Emergency Department on the above date and was hospitalized for further evaluation of their emergent condition. - New Patient This patient is new to me today: Yes Date on this admission: 09/14/16 - Critical Care Critical Care patient: No
[2016-09-14] MEDS ORDERED: HYDROmorphone HCL CARPU-JECT 1 MG/1 ML DISP.SYRIN IVPB ONE (04:21)
--- NOTE | 2016-09-14 04:23 | PN ---
Teaching Attending Note Name of Resident: Irais Dillon ATTENDING PHYSICIAN STATEMENT I saw and evaluated the patient. Chart, data, imaging reviewed I reviewed the resident's note and discussed the case with the resident. I agree with the resident's findings and plan as documented. SUBJECTIVE: 35 yr old woman with a history of left sided nephrolithiasis s/p stent placement, migration, and removal 2 years ago, ureterocele s/p incision of left ureterocele 09/13/2016 c/o edna hematuria, severe suprapubic pain shortly after procedure was performed after she was d/c home. Pain was not relieved by Percocet. Clots found to be passing when patient attempted to urinate. She denied diarrhea , nausea, and vomiting. No recent trauma. No blood thinners or antiplatelet agents. OBJECTIVE: Last Vital Signs Temp Pulse Resp BP Pulse Ox 98.2 F 76 18 144/58 100 09/14/16 06:00 09/14/16 06:00 09/14/16 06:00 09/14/16 06:00 09/14/16 04:47 General- patient was in distress, aaox3, not short of breath HEENT atraumatic, normocephalic, moist oral mucosa Neck supple CV- s1+s2+ RRR Chest CTA b/l Abdomen soft, NT, no masses Skin- tattoos+ - wilder+, +hematuria Laboratory Last Values WBC 9.8 K/mm3 (4.0-10.0) 09/13/16 23:05 RBC 3.65 M/mm3 (3.60-5.2) 09/13/16 23:05 Hgb 10.9 GM/dL (10.7-15.3) D 09/13/16 23:05 Hct 32.1 % (32.4-45.2) L D 09/13/16 23:05 MCV 87.9 fl (80-96) 09/13/16 23:05 MCH 29.8 pg (25.7-33.7) 09/13/16 23:05 MCHC 33.9 g/dl (32.0-36.0) 09/13/16 23:05 RDW 12.4 % (11.6-15.6) 09/13/16 23:05 Plt Count 203 K/MM3 (134-434) D 09/13/16 23:05 MPV 7.8 fl (7.5-11.1) 09/13/16 23:05 Neutrophils % 77.1 % (42.8-82.8) D 09/13/16 23:05 Lymphocytes % 13.9 % (8-40) D 09/13/16 23:05 Monocytes % 8.2 % (3.8-10.2) 09/13/16 23:05 Eosinophils % 0.4 % (0-4.5) D 09/13/16 23:05 Basophils % 0.4 % (0-2.0) 09/13/16 23:05 INR 1.14 (0.82-1.09) 09/14/16 00:16 PTT (Actin FS) 31.6 SECONDS (26.9-34.4) 09/14/16 00:16 Sodium 143 mmol/L (136-145) 09/13/16 23:05 Potassium 3.7 mmol/L (3.5-5.1) 09/13/16 23:05 Chloride 111 mmol/L (98-107) H 09/13/16 23:05 Carbon Dioxide 24 mmol/L (21-32) 09/13/16 23:05 Anion Gap 8 (8-16) 09/13/16 23:05 BUN 8 mg/dL (7-18) 09/13/16 23:05 Creatinine 0.4 mg/dL (0.55-1.02) L 09/13/16 23:05 Creat Clearance w eGFR > 60 (>60) 09/13/16 23:05 Random Glucose 129 mg/dL (74-106) H D 09/13/16 23:05 Calcium 7.7 mg/dL (8.5-10.1) L 09/13/16 23:05 Total Bilirubin 0.3 mg/dL (0.2-1.0) D 09/13/16 23:05 AST 13 U/L (15-37) L D 09/13/16 23:05 ALT 13 U/L (12-78) 09/13/16 23:05 Alkaline Phosphatase 36 U/L (45-117) L 09/13/16 23:05 Total Protein 5.6 g/dl (6.4-8.2) L 09/13/16 23:05 Albumin 3.1 g/dl (3.4-5.0) L D 09/13/16 23:05 Urine Color Yellow 09/13/16 23:18 Urine Appearance Cloudy 09/13/16 23:18 Urine pH 7.0 (5.0-8.0) 09/13/16 23:18 Urine Protein 3+ (NEGATIVE) H 09/13/16 23:18 Urine Glucose (UA) 3+ (NEGATIVE) H 09/13/16 23:18 Urine Ketones Negative (NEGATIVE) 09/13/16 23:18 Urine Blood 1+ (NEGATIVE) H 09/13/16 23:18 Urine Nitrite Negative (NEGATIVE) 09/13/16 23: Urine Bilirubin Negative (NEGATIVE) 09/13/16: Urine Urobilinogen Negative mg/dL (0.2-1.0) 09/13/16 23:18 Ur Leukocyte Esterase Negative (NEGATIVE) 09/13/16 23:18 Urine RBC 25 /hpf (0-3) 09/13/16 23:18 Urine WBC <1 /hpf (3-5) 09/13/16 23:18 Urine HCG, Qual Negative 09/13/16 23:18 Blood Type A POSITIVE 09/13/16 23: Antibody Screen Negative 09/13/16 23:05 ASSESSMENT AND PLAN: 35 yr old woman s/p incision of ureterocele with severe suprapubic pain and post op hematuria s/p wilder catheter placement, with multiple blood clots, requiring multiple wilder catheter changes. butter production supervisor called and pt to have emergent cystoscopy performed to evaluate source of bleeding. Source of bleeding likely from tract. Rapid response called for patient while on medical floor for severe suprapubic pain, resolved after wilder catheter was replaced. Pain likely secondary to wilder catheter obstruction from blood clot. Improved after wilder catheter change. Pt hemodynamically and clinically stable. -IV fluid hydration -Pain control with Dilaudid 1 mg q1 hr IV PRN -Maintain wilder with continuous bladder irrigation - kidney/bladder U/S - Urgent cystoscopy with Dr. Harp from - dilaudid 1mg prn #dvt ppx -SCDs -avoid heparin due to bleeding #Diet -NPO in anticipation for cystoscopy
--- NOTE | 2016-09-14 05:42 | PN ---
Progress Note (short form) - Note Progress Note: Urology Coverage: 35 y/o female who had ureterocele resection earlier today without reported complications. Was at home and developed abundant bleeding from the bladder. Was in clot retention and unable to void. Presented to ER and has had multiple Souza catheter with irrigations. PE : Pt currently awake and alert without any distress. AVSS Abdomen is soft and mildly tender in the supra pubic region. Urine via Souza is dark pink without clots. Explained to the patient the need for cystoscopy and fulguration of bleeding sites . She understands the procedure and agrees to proceed.
[2016-09-14] MEDS ORDERED: PROPOFOL 20 ML ONE (06:00)
[2016-09-14] MEDS ORDERED: LEVOFLOXACIN 500 MG PREMIX BAG IVPB ONE (06:13)
[2016-09-14] MEDS ORDERED: LEVOFLOXACIN 500 MG IVPB 100 ML IVPB ONE (06:13)
[2016-09-14] MEDS ORDERED: ePHEDrine SULFATE 50 MG/1 ML AMPULE ONE (06:26)
[2016-09-14] MEDS ORDERED: DESFLURANE GAS 240 ML BOTTLE IH ONE (06:38)
[2016-09-14] MEDS ORDERED: OXYCODONE/APAP 5/325MG COMBO TABLET PO PRN (07:27)
[2016-09-14] MEDS ORDERED: ONDANSETRON 4 MG/2 ML VIAL IVPUSH PRN (07:28)
[2016-09-14] MEDS ORDERED: HYDROmorphone HCL CARPU-JECT 2 MG/1 ML DISP.SYRIN ONE (07:33)
--- NOTE | 2016-09-14 07:33 | OP ---
Operative Note - Note: Operative Date: 09/14/16 Pre-Operative Diagnosis: Hematuria/clot retention Operation: Cystooscpoy, evacuation of clots and fulguration of bleeders. Findings: large volume of blood clots in bladder and bleeding from previous ureteroscele resection site on the left. Surgeon: Rakesh Harp Anesthesiologist/LIVESTOCK SHOWMAN: Tex Grimaldo Anesthesia: General Specimens Removed: blood clots Fluid Volume Replaced (mls): 700 Operative Report Dictated: Yes
[2016-09-14] MEDS: HYDROmorphone HCL CARPU-JECT 1 MG/1 ML DISP.SYRIN IVPUSH PRN ×4 (07:40→15:40)
[2016-09-14 08:01] LABS: BASOPHIL 0.3 % (0-2.0); EOSINOPHIL 1.1 % (0-4.5); MCHC 33.5 g/dl (32.0-36.0); MEAN CELL VOLUME 89.5 fl (80-96); MEAN PLT VOLUME 7.3 fl (7.5-11.1); NEUTROPHILS 69.6 % (42.8-82.8); PLATELET COUNT 162 K/MM3 (134-434); RDW 12.5 % (11.6-15.6); WHITE BLOOD COUNT 9.8 K/mm3 (4.0-10.0)
[2016-09-14] MEDS ORDERED: LEVOFLOXACIN 250 MG TABLET (FP) PO SCH (08:15)
[2016-09-14 08:19] LABS: ANION GAP 7 (8-16); CALCIUM 7.2 mg/dL (8.5-10.1); CO2 23 mmol/L (21-32); CREATININE 0.5 mg/dL (0.55-1.02); GLUCOSE,RANDOM 128 mg/dL (74-106)
[2016-09-14] MEDS: SODIUM CHLORIDE 1,000 ML IV SCH ×2 (09:38→15:36)
--- NOTE | 2016-09-14 10:35 | PN ---
Physical Exam: SUBJECTIVE: Patient seen and examined. She is sleepy after procedure. She has no complaints. OBJECTIVE: Vital Signs Period Temp Pulse Resp BP Sys/Byrnes Pulse Ox Last 24 Hr 96.4 F-98.4 F 71-109 16-22 109-146/58-76 100-100 GENERAL: The patient is awake, alert, and fully oriented, in no acute distress. NECK: Supple. LUNGS: Breath sounds equal, clear to auscultation bilaterally, no wheezes, no crackles, no accessory muscle use. HEART: Regular rate and rhythm, S1, S2 without murmur, rub or gallop. ABDOMEN: Soft, nontender, nondistended, normoactive bowel sounds, no guarding, no rebound, no hepatosplenomegaly, no masses. EXTREMITIES: 2+ pulses, warm, well-perfused, no edema. Laboratory Results - last 24 hr 09/14/16 09/14/16 07:50 07:50 WBC 9.8 RBC 3.07 L Hgb 9.2 L D Hct 27.5 L MCV 89.5 MCH 30.0 MCHC 33.5 RDW 12.5 Plt Count 162 D MPV 7.3 L Neutrophils % 69.6 Lymphocytes % 23.1 D Monocytes % 5.9 Eosinophils % 1.1 D Basophils % 0.3 Sodium 145 Potassium 3.6 Chloride 115 H Carbon Dioxide 23 Anion Gap 7 L BUN 6 L D Creatinine 0.5 L D Random Glucose 128 H Calcium 7.2 L Active Medications Generic Name Dose Route Start Last Admin Trade Name Freq PRN Reason Stop Dose Admin Hydromorphone HCl 0.5 mg 09/14/16 07:28 09/14/16 09:59 Dilaudid Injection - IVPUSH 09/17/16 07:29 0.5 mg [id number] PRN Administration PAIN Sodium Chloride 1,000 mls @ 100 mls/hr 09/14/16 09:00 09/14/16 09:38 Normal Saline - IV Not Given ASDIR [facility] Levofloxacin 250 mg 09/14/16 08:15 Levaquin - PO DAILY@0600 [facility] Ondansetron HCl 4 mg 09/14/16 07:28 Zofran Injection IVPUSH 09/14/16 13:29 Q6H PRN NAUSEA AND/OR VOMITING Oxycodone/Acetaminophen 1 combo 09/14/16 07:27 Percocet 5/325 - PO Q4H PRN PAIN LEVEL 1-5 ASSESSMENT/PLAN: This is a 35-year-old woman with a history asthma, gestational diabetes, ureterocele s/p incision 09/13 who presented to the ER with hematuria and inability to urinate. 1. Acute blood loss anemia secondary to hematuria after ureterocele incision - s/p cystoscopy, evacuation of clots, fulguration today - Continue Levaquin - Urine culture pending - Monitor hemoglobin 2. Asthma - Stable Visit type - Emergency Visit Emergency Visit: Yes ED Registration Date: 09/14/16 Care time: The patient presented to the Emergency Department on the above date and was hospitalized for further evaluation of their emergent condition. - New Patient This patient is new to me today: Yes Date on this admission: 09/14/16 - Critical Care Critical Care patient: No - Discharge Referral Referred to [facility] Med P.C.: No
[2016-09-14] MEDS ORDERED: ACETAMINOPHEN 325 MG TABLET (FP) PO PRN (12:54)
[2016-09-14] MEDS: oxyCODONE HCL 5 MG TABLET PO PRN (18:50)
[2016-09-15] MEDS: SODIUM CHLORIDE 1,000 ML IV SCH ×3 (02:07→13:01)
[2016-09-15] MEDS: LEVOFLOXACIN 250 MG TABLET (FP) PO SCH (06:58)
[2016-09-15 08:01] LABS: MCH 30.1 pg (25.7-33.7); MCHC 34.1 g/dl (32.0-36.0); MEAN CELL VOLUME 88.3 fl (80-96); MEAN PLT VOLUME 7.9 fl (7.5-11.1); PLATELET COUNT 143 K/MM3 (134-434); RDW 12.4 % (11.6-15.6); WHITE BLOOD COUNT 7.5 K/mm3 (4.0-10.0)
--- NOTE | 2016-09-15 08:13 | PN ---
Physical Exam: SUBJECTIVE: Patient seen and examined. She complains of headache. OBJECTIVE: Vital Signs Period Temp Pulse Resp BP Sys/Byrnes Pulse Ox Last 24 Hr 96.4 F-99.9 F 65-77 16-20 102-140/46-74 100-100 GENERAL: The patient is awake, alert, and fully oriented, in no acute distress. NECK: Supple. LUNGS: Breath sounds equal, clear to auscultation bilaterally, no wheezes, no crackles, no accessory muscle use. HEART: Regular rate and rhythm, S1, S2 without murmur, rub or gallop. ABDOMEN: Soft, nontender, nondistended, normoactive bowel sounds, no guarding, no rebound, no hepatosplenomegaly, no masses. EXTREMITIES: 2+ pulses, warm, well-perfused, no edema. Laboratory Results - last 24 hr 09/14/16 09/14/16 07:50 07:50 WBC 9.8 RBC 3.07 L Hgb 9.2 L D Hct 27.5 L MCV 89.5 MCH 30.0 MCHC 33.5 RDW 12.5 Plt Count 162 D MPV 7.3 L Neutrophils % 69.6 Lymphocytes % 23.1 D Monocytes % 5.9 Eosinophils % 1.1 D Basophils % 0.3 Sodium 145 Potassium 3.6 Chloride 115 H Carbon Dioxide 23 Anion Gap 7 L BUN 6 L D Creatinine 0.5 L D Random Glucose 128 H Calcium 7.2 L Active Medications Generic Name Dose Route Start Last Admin Trade Name Freq PRN Reason Stop Dose Admin Acetaminophen 325 mg 09/14/16 12:54 Tylenol - PO 09/17/16 12:53 Q4H PRN PAIN Hydromorphone HCl 0.5 mg 09/14/16 07:28 09/14/16 15:40 Dilaudid Injection - IVPUSH 09/17/16 07:29 0.5 mg [id number] PRN Administration PAIN Sodium Chloride 1,000 mls @ 100 mls/hr 09/14/16 09:00 09/15/16 02:07 Normal Saline - IV 100 mls/hr ASDIR NICKI Administration Levofloxacin 250 mg 09/14/16 08:15 09/15/16 06:58 Levaquin - PO 250 mg DAILY@0600 NICKI Administration Oxycodone HCl 5 mg 09/14/16 12:54 09/14/16 18:50 Roxicodone - PO 5 mg Q4H PRN Administration PAIN LEVEL 1-5 ASSESSMENT/PLAN: This is a 35-year-old woman with a history asthma, gestational diabetes, ureterocele s/p incision 09/13 who presented to the ER with hematuria and inability to urinate. 1. Acute blood loss anemia secondary to hematuria after ureterocele incision - s/p cystoscopy, evacuation of clots, fulguration 09/14 - Continue Levaquin - Urine culture negative - Monitor hemoglobin 2. Asthma - Stable 3. Headache - Acetaminophen as needed Visit type - Emergency Visit Emergency Visit: Yes ED Registration Date: 09/14/16 Care time: The patient presented to the Emergency Department on the above date and was hospitalized for further evaluation of their emergent condition. - New Patient This patient is new to me today: No - Critical Care Critical Care patient: No - Discharge Referral Referred to [facility] Med P.C.: No
[2016-09-15 08:26] LABS: ANION GAP 6 (8-16); CALCIUM 7.1 mg/dL (8.5-10.1); CO2 25 mmol/L (21-32); GLUCOSE,RANDOM 81 mg/dL (74-106)
[2016-09-15] MEDS: ACETAMINOPHEN 325 MG TABLET (FP) PO PRN ×2 (08:27→21:37)
[2016-09-15 08:29] LABS: CREATININE 0.3 mg/dL (0.55-1.02)
--- NOTE | 2016-09-15 11:10 | PN ---
Progress Note (short form) - Note Progress Note: Urology POD#1 Pt alert awake c/o feelong weak. AVSS slight tachycardia. Abdomin is soft and not tender. No back or flank pain reported. Urine clear pale yellow.' Souza catheter removed. H/H lower. Repeat requested. CBC WBC 7.5 K/mm3 (4.0-10.0) 09/15/16 06:00 RBC 2.52 M/mm3 (3.60-5.2) L 09/15/16 06:00 Hgb 7.6 GM/dL (10.7-15.3) L D 09/15/16 06:00 Hct 22.2 % (32.4-45.2) L D 09/15/16 06:00 MCV 88.3 fl (80-96) 09/15/16 06:00 MCH 30.1 pg (25.7-33.7) 09/15/16 06:00 MCHC 34.1 g/dl (32.0-36.0) 09/15/16 06:00 RDW 12.4 % (11.6-15.6) 09/15/16 06:00 Plt Count 143 K/MM3 (134-434) 09/15/16 06:00 MPV 7.9 fl (7.5-11.1) 09/15/16 06:00 Neutrophils % 69.6 % (42.8-82.8) 09/14/16 07:50 Lymphocytes % 23.1 % (8-40) D 09/14/16 07:50 Monocytes % 5.9 % (3.8-10.2) 09/14/16 07:50 Eosinophils % 1.1 % (0-4.5) D 09/14/16 07:50 Basophils % 0.3 % (0-2.0) 09/14/16 07:50 Continue IV hydration and observation for hematuria. Stable.
[2016-09-15 12:01] LABS: MCH 29.9 pg (25.7-33.7); MCHC 33.7 g/dl (32.0-36.0); MEAN CELL VOLUME 88.6 fl (80-96); MEAN PLT VOLUME 7.4 fl (7.5-11.1); PLATELET COUNT 161 K/MM3 (134-434); RDW 12.5 % (11.6-15.6); WHITE BLOOD COUNT 8.5 K/mm3 (4.0-10.0)
[2016-09-15] MEDS: oxyCODONE HCL 5 MG TABLET PO PRN (13:43)
--- NOTE | 2016-09-15 13:53 | PN ---
Progress Note (short form) - Note Progress Note: POD #1 - s/p cystoscopy, evacuation of clots, fulguration of bleeders under GA. Pt. doing well, sitting up comfortably in bed. No complaints. No apparent anesthetic complications noted. Continue current care.
[2016-09-16] MEDS: LEVOFLOXACIN 250 MG TABLET (FP) PO SCH (06:34)
[2016-09-16 08:32] LABS: MCHC 34.1 g/dl (32.0-36.0); MEAN CELL VOLUME 87.8 fl (80-96); MEAN PLT VOLUME 7.9 fl (7.5-11.1); PLATELET COUNT 160 K/MM3 (134-434); RDW 12.4 % (11.6-15.6); WHITE BLOOD COUNT 6.4 K/mm3 (4.0-10.0)
[2016-09-16 11:10] VITALS: BP 120/70; PULSE 70; TEMP 99.2
--- NOTE | 2016-09-16 14:37 | PN ---
Teaching Attending Note Name of Resident: Irais Dillon ATTENDING PHYSICIAN STATEMENT I saw and evaluated the patient. I reviewed the resident's note and discussed the case with the resident. I agree with the resident's findings and plan as documented. SUBJECTIVE: OBJECTIVE: Vital Signs Period Temp Pulse Resp BP Sys/Byrnes Pulse Ox Last 24 Hr 98.9 F-99.2 F 70-77 20-20 102-127/40-74 100-100 ASSESSMENT AND PLAN:
--- NOTE | 2016-09-16 15:48 | DS ---
Physical Exam: SUBJECTIVE: Patient seen and examined at bedside. No acute events overnight. Pt resting comfortably, passing flatus, unable to have BM but feels the urge to go. Denies dysuria, hematuria or abdominal pain. OBJECTIVE: Vital Signs Period Temp Pulse Resp BP Sys/Byrnes Pulse Ox Last 24 Hr 98.9 F-99.2 F 70-77 20-20 102-127/40-74 100-100 PHYSICAL EXAM GENERAL: The patient is awake, alert, and fully oriented, in no acute distress. HEAD: Normal with no signs of trauma. EYES: PERRL, extraocular movements intact, sclera anicteric, conjunctiva clear. ENT: oropharynx clear without exudates, moist mucous membranes. NECK: Trachea midline, supple. LUNGS: Breath sounds equal, clear to auscultation bilaterally, no wheezes, no crackles, no accessory muscle use. HEART: Regular rate and rhythm, S1, S2 without murmur, rub or gallop. ABDOMEN: Soft, nontender, nondistended, normoactive bowel sounds, no guarding, no rebound EXTREMITIES: 2+ posterior tibial pulses, warm, well-perfused, no edema. NEUROLOGICAL: Cranial nerves II through XII grossly intact. LABS 09/13/16 09/13/16 09/13/16 23:05 23:05 23:18 RBC 3.65 Hgb 10.9 D Hct 32.1 L D BUN 8 Creatinine 0.4 L Random Glucose 129 H D Alkaline Phosphatase 36 L Total Protein 5.6 L Albumin 3.1 L D Urine Protein 3+ H Urine Glucose (UA) 3+ H Urine Blood 1+ H 09/14/16 09/14/16 09/15/16 07:50 07:50 06:00 RBC 3.07 L 2.52 L Hgb 9.2 L D 7.6 L D Hct 27.5 L 22.2 L D BUN 6 L D Creatinine 0.5 L D Random Glucose 128 H Alkaline Phosphatase Total Protein Albumin Urine Protein Urine Glucose (UA) Urine Blood 09/15/16 09/15/16 09/16/16 06:00 11:55 06:04 RBC 2.94 L 2.59 L Hgb 8.8 L D 7.8 L D Hct 26.1 L D 22.8 L BUN 5 L Creatinine 0.3 L D Random Glucose 81 D Alkaline Phosphatase Total Protein Albumin Urine Protein Urine Glucose (UA) Urine Blood OPERATIONS cystoscopy and evacuation of clots and fulguration of bleeding sites. HOSPITAL COURSE: Date of Admission:09/14/16 Date of Discharge: 09/16/16 Admit diagnosis: hematuria secondary to ureterocele procedure Pre-admission course 35 year old F with PMH recent incision of ureterocele (done yesterday morning) presents to ED after she started noticing blood in her urine yesterday at 3pm. As per patient, she had hematuria with clumping and frequency- she was urinating every two minutes. Her hematuria was accompanied with severe knife- like suprapubic, nonradiating pain during this time. The pain was a 10/10 when urinating, and a 9/10 when not urinating. Pt took one perkoset, but it did not alleviate it. She has also felt lightheaded during this time. Since the pain was so severe, she tried to reach out to her surgeon, Dr. Guidry. She was unable to get in touch with him, but his colleague told her to come to the ED. Denies fever, chills, chest pain, N/V/D, back pain, or blurry vision. ER course was notable for: (1) excessive hematuria (2) urine: 3+urine protein, blood, 3+ glucose (3) was given dilaudid and morphine in ED Hospital course While on the floor, patient passed many clots through her Souza, and had it changed three times. Patient was placed on normal saline and kept NPO initially. She continued to have dysuria and hematuria, losing large quantities of blood. She was in excruciating pain, despite the administration of dilaudid 1mg PRN. After consulting urology, she underwent cystoscopy and evacuation of clots and fulguration of bleeding sites. During this time, patient was placed on Levaquin 250 mg PO for two days and her hemoglobin was monitored. After cystoscopy, patient's condition greatly improved. She reported dysuria, no hematuria. Minutes to complete discharge: 32 Discharge Summary Reason For Visit: HEMATURIA, BLADDER OUTLET OBSTRUCTION, ABD PAIN Condition: Stable - Instructions Diet, Activity, Other Instructions: You were recently in the hospital for blood in your urine. You may gradually resume activity as tolerated, avoid heavy lifting and any abdominal pressure- this may cause bleeding. Drink plenty of fluids to stay hydrated. Follow up with: Dr. Guidry and your primary care physician, Dr. Burt, in a week If you notice any blood in your urine, trouble urinating, experience any severe abdominal pain, become short of breath or have chest pain, please go to the hospital. Referrals: Apryl Youssef MD [Staff Physician] - Russel Guidry MD [Staff Physician] - Melida Albert [Primary Care Provider] - Disposition: HOME - Home Medications Comprehensive Discharge Medication List: Ambulatory Orders Oxycodone HCl/Acetaminophen [Percocet 10-325 mg Tablet] 1 each PO Q4HWA PRN #20 tablet MDD 6 09/13/16 This patient is new to me today: No Emergency Visit: No Critical Care patient: No - Discharge Referral Referred to [facility] Med P.C.: No
--- NOTE | 2016-09-16 17:45 | OP ---
DATE OF OPERATION: 09/14/2016 PREOPERATIVE DIAGNOSES: Hematuria, clot retention. POSTOPERATIVE DIAGNOSES: Hematuria, clot retention. OPERATIVE PROCEDURE: Cystoscopy, evacuation of clots, fulguration of bleeders. SURGEON: Rakesh Harp MD ANESTHESIA: General. Tex Grimaldo MD, gave the anesthesia. DESCRIPTION OF PROCEDURE: The patient was brought to the operating suite. After earlier yesterday, had a transurethral resection of a ureterocele. She was home and had abundance of hematuria and then clot retention. She was brought to the emergency room and admitted. The bladder, despite CBI irrigation, was unable to clear. She was brought to the operating suite and then anesthesia, had all clots evacuated with a Gina syringe. There was a large amount of clots in the bladder. Once the bladder was relatively cleared of clots, using the 26-Latvian resectoscope, the resection site of the ureterocele around the left ureteral orifice was fulgurated, and any bleeding points were cauterized. Again, re-inspection of the entire bladder revealed no evidence of active bleeding. A small piece of the resection loop did break off and was seen in the bladder, and then, a cystoscope was used to extract the piece of the loop outside the bladder. It was lost in a pile of clots in the drainage pool; so, an x-ray was taken, and there was no evidence of any foreign body in the bladder. The patient was placed supine, awakened, and then accompanied to the recovery area in stable condition. It was a clean/contaminated case with a blood loss of approximately 10 mL. RAKESH HARP M.D. [id number]
== END 2016-09-16 12:42 | disposition home or self-care (01) | DRG 791 ==
LOC: JER 22:22 → JERBED 09-14 02:25 → UNDOADMIN 09-14 02:28 → JERBED 09-14 02:28 → J8W 09-14 04:47
PROVIDERS: ADMIT Internal Medicine; ATTEND Internal Medicine
PROC: 0T5B8ZZ Destruction of Bladder, Via Natural or Artificial Opening Endoscopic (ICD-10-PCS; 2016-09-14)
PROC: 0W3R8ZZ Control Bleeding in Genitourinary Tract, Via Natural or Artificial Opening Endoscopic (ICD-10-PCS; 2016-09-14)
PROC: 0TCB8ZZ Extirpation of Matter from Bladder, Via Natural or Artificial Opening Endoscopic (ICD-10-PCS; principal; 2016-09-14 05:30)
DX: N99.820 Postprocedural hemorrhage of a genitourinary system organ or structure following a genitourinary system procedure (principal); Y83.9 Surgical procedure, unspecified as the cause of abnormal reaction of the patient, or of later complication, without mention of misadventure at the time of the procedure; N32.0 Bladder-neck obstruction; D62 Acute posthemorrhagic anemia; J45.909 Unspecified asthma, uncomplicated; R51 Headache; R31.0 Gross hematuria
CPT/HCPCS: 36415; 71010-TC; 74000-TC; 76775-TC; 76856-TC; 80048; 80053; 81003; 81015; 84703; 85025; 85027; 85610; 85730; 86850; 86900; 86901; 87086; 94760; 99284-25

== ENCOUNTER 2016-09-23 10:55 | Emergency (ER) | payer OTHER ==
[2016-09-23 11:03] VITALS: TEMP 98.3; BMI 23.8
--- NOTE | 2016-09-23 11:32 | PDOC ---
History of Present Illness - General Chief Complaint: Chest Pain Stated Complaint: CHEST PAIN Time Seen by Provider: 09/23/16 10:58 History Source: Patient Exam Limitations: No Limitations - History of Present Illness Initial Comments: 09/23/16 11:29 Patient is an otherwise healthy 35 year old smoker with recent surgical procedure and hospitalization who presents with 1 day of chest and left arm pain. Patient first noticed the pain in her left arm upon waking yesterday morning. The pain then spread to her chest and has been getting progressively worse. Pain was mildly relieved with Percocet last night but returned and is currently 10/10. Patient is also feeling weak and has numbness and tingling in her left arm. Endorses headache, dizziness and nausea but denies vomiting, fever and shortness of breath Patient had a bladder cyst removed a week ago and required an emergency cystoscopy and one day hospitalization the following day d/t excessive hemorrhaging. Patient is a 13 year, 1/2 pack a day smoker. Past History - Past Medical History Allergies/Adverse Reactions: Allergies Allergy/AdvReac Type Severity Reaction Status Date / Time No Known Drug Allergies Allergy Verified 09/23/16 10:58 Home Medications: Ambulatory Orders Oxycodone HCl/Acetaminophen [Percocet 10-325 mg Tablet] 1 each PO Q4HWA PRN #20 tablet MDD 6 09/13/16 Cyclobenzaprine HCl [Flexeril -] 10 mg PO TID PRN #7 tablet 09/23/16 Anemia: Yes (MENSES RELATED) Asthma: Yes Cancer: No Cardiac Disorders: No CVA: No COPD: No CHF: No Dementia: No Diabetes: No GI Disorders: No Disorders: Yes (H/O BLADDER CYST) HTN: No Hypercholesterolemia: No Liver Disease: No Seizures: No Thyroid Disease: (WAS DISCHARGED AND CAME BACK STAYED 4 DAYS) - Surgical History Abdominal Surgery: Yes (MARTINMY CATRINACK 2010 GASTRIC SLEEVE) - Immunization History Immunization Up to Date: Yes - Psycho/Social/Smoking Cessation Hx Anxiety: No Suicidal Ideation: No Smoking Status: Yes Smoking History: Current every day smoker Have you smoked in the past 12 months: Yes Number of Cigarettes Smoked Daily: 4 Information on smoking cessation initiated: Yes 'Breaking Loose' booklet given: 09/23/16 Hx Alcohol Use: No Drug/Substance Use Hx: No Substance Use Type: None Hx Substance Use Treatment: No Review of Systems - Review of Systems Able to Perform ROS?: Yes Constitutional: No: Chills, Fever Respiratory: No: Shortness of Breath ABD/GI: Yes: Nausea. No: Vomiting, Other (Pain) Musculoskeletal: Yes: Muscle Pain (left arm) Neurological: Yes: Headache, Numbness (Left arm and hand), Tingling (Left arm and hand), Weakness, Dizziness *Physical Exam - Vital Signs Last Vital Signs Temp Pulse Resp BP Pulse Ox 98.3 F 71 18 115/59 100 09/23/16 10:55 09/23/16 10:55 09/23/16 10:55 09/23/16 10:55 09/23/16 10:55 - Physical Exam General Appearance: Yes: Nourished, Appropriately Dressed HEENT: positive: EOMI, MEHDI Neck: positive: Supple. negative: Lymphadenopathy (R), Lymphadenopathy (L) Respiratory/Chest: positive: Lungs Clear, Decreased Breath Sounds (left ). negative: Chest Tender Cardiovascular: positive: Regular Rhythm, Regular Rate. negative: JVD, Murmur Gastrointestinal/Abdominal: positive: Normal Bowel Sounds. 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, Fully Oriented, Alert, Motor Strength 5/5 (Deminished in UE on left ), Sensory Deficit (Left arm and hand) Heart Score/ECG Review - History History: Slightly suspicious - Electrocardiogram EKG: Normal - Age Age: </= 45 - Risk Factors Risk Factors Heart Score: Yes Smoking History Based on the list above the patient has:: 1-2 risk factors - Troponin Troponin: </= normal limit - Score Heart Score - Total: 1 ED Treatment Course - LABORATORY CBC & Chemistry Diagram: 09/23/16 11:50 09/23/16 11:50 - RADIOLOGY Chest X-Ray Result: Other (No evidence of active pulmonary disease) Medical Decision Making - Medical Decision Making 09/23/16 13:09 35 year old female with history of recent surgery with significant blood loss presenting with arm and chest pain that started at sleep, initially in the arm with progression to the chest and worse with movement. Ddx most concerning for MD or PE but also includes anemia, PNA and muscle strain /spasm Pain management, EKG, CXR, Labs CBC WBC 6.5 K/mm3 (4.0-10.8) 09/23/16 11:50 RBC 3.07 M/mm3 (3.60-5.2) L D 09/23/16 11:50 Hgb 9.4 GM/dl (10.7-15.3) L D 09/23/16 11:50 Hct 27.9 % (32.4-45.2) L D 09/23/16 11:50 MCV 90.9 fl (80-96) 09/23/16 11:50 MCH 30.5 pg (25.7-33.7) 09/23/16 11:50 MCHC 33.6 g/dl (32.0-36.0) 09/23/16 11:50 RDW 11.9 % (11.6-15.6) 09/23/16 11:50 Plt Count 384 K/MM3 (134-434) D 09/23/16 11:50 MPV 7.5 fl (7.5-11.1) 09/23/16 11:50 Neutrophils % 54.7 % (42.8-82.8) 09/23/16 11:50 Lymphocytes % 31.3 % (8-40) 09/23/16 11:50 Monocytes % 6.6 % (3.8-10.2) 09/23/16 11:50 Eosinophils % 6.2 % (0-4.5) H 09/23/16 11:50 Basophils % 1.2 % (0-2.0) 09/23/16 11:50 Mild anemia with a slight improvement from a week ago. CMP Sodium 136 mmol/L (136-145) 09/23/16 11:50 Potassium 3.8 mmol/L (3.5-5.1) 09/23/16 11:50 Chloride 107 mmol/L (98-107) 09/23/16 11:50 Carbon Dioxide 26 mmol/L (22-28) 09/23/16 11:50 Anion Gap 3 (8-16) L 09/23/16 11:50 BUN 11 mg/dl (7-18) D 09/23/16 11:50 Creatinine 0.5 mg/dl (0.6-1.3) L 09/23/16 11:50 Random Glucose 69 mg/dl (74-106) L D 09/23/16 11:50 Calcium 8.7 mg/dl (8.4-10.2) 09/23/16 11:50 Phosphorus 3.7 mg/dl (2.5-4.6) 09/23/16 11:50 Magnesium 1.9 mg/dL (1.8-2.4) 09/23/16 11:50 Creatine Kinase 56 IU/L (26-140) 09/23/16 11:50 Troponin I < 0.03 ng/ml (0.03-0.50) L 09/23/16 11:50 Troponin(-) and other electrolytes within normal limits. EKG shows NSR with normal axis and intervals and no acute ST-segment changes CXR shows no acute pulmonary pathology Vitals within normal limits Patient is much improved with pain medication, no evidence of cardiac or laboratory abnormalities. Likely a transient spasm or arm ischemia from a bad sleeping posture. Patient comfortable going home with Rx for muscle spasms and OTC pain relief. Patient given return precautions. *DC/Admit/Observation/Transfer Diagnosis at time of Disposition: Muscle strain - Discharge Dispostion Disposition: HOME Condition at time of disposition: Stable Admit: No - Prescriptions Prescriptions: Cyclobenzaprine HCl [Flexeril -] 10 mg PO TID PRN #7 tablet PRN Reason: Muscle Spasms - Referrals Referrals: Apryl Youssef MD [Primary Care Provider] - - Patient Instructions Printed Discharge Instructions: DI for Muscle Strain Additional Instructions: Thank you for trusting us with your health care today. I hope you were satisfied with your care. As we discussed your symptoms are most consistent with a muscle strain from sleeping on your arm. The tests we performed were to rule out serious conditions and did not show any acute problems. However, if your symptoms do not improve in the next few days, you should follow up with your primary doctor for pain management. In the mean time we have sent a prescription for a muscle relaxor to your pharmacy and you can take this and over the counter motrin as needed. If you become significantly worse or develop a high fever or breathing difficulties, please return to the ED or dial 911 immediately. Hot baths or heating pads may also help with the pain. - Attestations Physician Attestion: 09/23/16 14:32 I, Dr. Lawrence Mcbride, attest that this document has been prepared under my direction and personally reviewed by me in its entirety. I further attest, that it accurately reflects all work, treatment, procedures and medical decision -making performed by me.
[2016-09-23] MEDS ORDERED: KETOROLAC TROMETHAMINE 30 MG/1 ML VIAL ONE (11:36)
[2016-09-23] MEDS ORDERED: diazePAM 5 MG TABLET ONE (11:36)
[2016-09-23] MEDS ORDERED: diazePAM CARPU-JECT 10 MG/2 ML DISP.SYRIN IVPUSH ONE (11:40)
[2016-09-23] MEDS ORDERED: diazePAM 5 MG TABLET PO ONE (11:53)
[2016-09-23] MEDS ORDERED: KETOROLAC TROMETHAMINE 30 MG/1 ML VIAL IVPUSH ONE (11:54)
--- NOTE | 2016-09-23 12:01 | PDOC ---
Attending Attestation - Resident Resident Name: Lawrence Mcbride - ED Attending Attestation I have performed the following: I have examined & evaluated the patient, The case was reviewed & discussed with the resident, I agree w/resident's findings & plan, Exceptions are as noted - HPI HPI: 09/23/16 11:47 Agree with the resident's HPI as documented in the electronic medical record. - Physicial Exam PE: 09/23/16 11:47 Agree with the resident's physical examination as documented in the electronic medical record. - Medical Decision Making 09/23/16 11:47 35-year-old female with history of ureterocele removal complicated by excessive hematuria and abdominal pain which resolved after cystoscopy presents to the ED today withc/o left-sided chest, arm and shoulder pain since yesterday morning described as sharp, constant and worsened with movement. The patient only has one cardiac RF and is saturating 100% on RA with no tachycardia. DDx includes but is not limited to: MSK spasm, sprain/strain, ACS, PNA, PTX. Given her normal VS and oxygenation along with lack of respiratory complaints, PE is unlikely. Plan: 1. EKG: shows NSR at 67 bpm with normal axis, intervals and no acute ST- segment changes 2. Labs 3. CXR 4. Pain management 5. Observe and re-evaluate 09/23/16 13:58 Addendum: Labs were reviewed and are noted in the EMR. The patient received toradol and valium and is feeling improved and wants to go home. She tolerated PO without nausea or vomiting. Will discharge home and have patient follow-up with PCP within the next week and will advise to return to the ED if her symptoms persist, worsen or new symptoms arise.
[2016-09-23 12:10] LABS: BASOPHIL 1.2 % (0-2.0); EOSINOPHIL 6.2 % (0-4.5); MCH 30.5 pg (25.7-33.7); MCHC 33.6 g/dl (32.0-36.0); MEAN CELL VOLUME 90.9 fl (80-96); MEAN PLT VOLUME 7.5 fl (7.5-11.1); NEUTROPHILS 54.7 % (42.8-82.8); PLATELET COUNT 384 K/MM3 (134-434); RDW 11.9 % (11.6-15.6); WHITE BLOOD COUNT 6.5 K/mm3 (4.0-10.8)
[2016-09-23 12:23] LABS: CPK(DFH) 56 IU/L (26-140)
[2016-09-23 12:24] LABS: ANION GAP 3 (8-16); CALCIUM 8.7 mg/dl (8.4-10.2); CO2 26 mmol/L (22-28); CREATININE 0.5 mg/dl (0.6-1.3); GLUCOSE,RANDOM 69 mg/dl (74-106); MAGNESIUM 1.9 mg/dL (1.8-2.4); PHOSPHOROUS 3.7 mg/dl (2.5-4.6)
[2016-09-23 12:32] LABS: TROPONIN I (DFP) < 0.03 ng/ml (0.03-0.50)
[2016-09-23 14:17] VITALS: BP 108/65; PULSE 68
--- NOTE | 2016-09-24 21:33 | EKG ---
Test Reason : Blood Pressure : / mmHG Vent. Rate : 067 BPM Atrial Rate : 067 BPM P-R Int : 132 ms QRS Dur : 086 ms QT Int : 396 ms P-R-T Axes : -01 061 043 degrees QTc Int : 418 ms NORMAL SINUS RHYTHM WITH SINUS ARRHYTHMIA ST ELEVATION, CONSIDER EARLY REPOLARIZATION, PERICARDITIS, OR INJURY WHEN COMPARED WITH ECG OF 14-SEP-2016 02:39, CHANGES MENTIOMED ABOVE CLINICAL CORRELATION AND REPEAT INDICATED Confirmed by AMALIA LEON MD ([id number]) on 09/24/2016 9:32:52 PM Referred By: SCOTTY GRAY Confirmed By:AMALIA LEON MD
== END 2016-09-23 14:50 | disposition home or self-care (01) ==
LOC: FER 10:55
PROC: 3E0333Z Introduction of Anti-inflammatory into Peripheral Vein, Percutaneous Approach (ICD-10-PCS; principal; 2016-09-23)
DX: M79.1 Myalgia (principal)
CPT/HCPCS: 36415; 71010-TC; 80048; 82550; 83735; 84100; 84484; 84703; 85025; 93005; 96374; 99285-25

== ENCOUNTER 2017-05-28 08:54 | Day surgery (SDC) | payer OTHER ==
[2017-05-27 14:03] VITALS: BMI 26.5
[2017-05-28] MEDS ORDERED: LIDOCAINE HCL 1%, 10 MG/ML (20ML VIAL) ONE (09:32)
[2017-05-28] MEDS ORDERED: HEPARIN NA (PORCINE) 5,000 UNITS/ML 1ML VIAL ONE (09:32)
[2017-05-28] MEDS ORDERED: SODIUM BICARBONATE 8.4% - 50 ML ONE (09:36)
[2017-05-28] MEDS ORDERED: IBUPROFEN 800 MG/8 ML IJ IVPB PRN (11:02)
--- NOTE | 2017-05-28 11:02 | HP ---
History & Physical Update - History History: No Change - Physical Physical: No Change - Assessment Assessment: No Change - Plan Plan: No Change (from may 27 2017)
[2017-05-28] MEDS ORDERED: ACETAMINOPHEN 1000 MG/100 ML VIAL (NON FORMULARY) IVPB ONE (11:03)
[2017-05-28] MEDS ORDERED: MIDAZOLAM HCL 2 MG/2 ML SINGLE DOSE VIAL ONE (11:05)
[2017-05-28] MEDS ORDERED: PROPOFOL 20 ML ONE (11:05)
[2017-05-28] MEDS ORDERED: DEXTROSE 5%-0.45% SALINE 1,000 ML IV SCH (11:15)
[2017-05-28] MEDS ORDERED: ceFAZolin SODIUM 1 GM VIAL ONE (11:23)
[2017-05-28] MEDS ORDERED: ceFAZolin SODIUM 1 GM VIAL IVPB ONE (11:24)
[2017-05-28] MEDS ORDERED: DEXAMETHASONE SOD PHOSPHATE 4 MG/1 ML VIAL ONE (11:29)
[2017-05-28] MEDS ORDERED: HEPARIN NA (PORCINE) 5,000 UNITS/ML 1ML VIAL SQ ONE (11:34)
[2017-05-28] MEDS ORDERED: LIDOCAINE HCL 1%, 10 MG/ML (20ML VIAL) NR ONE (11:34)
[2017-05-28] MEDS ORDERED: SODIUM BICARBONATE 8.4% 50 MEQ/50 ML VIAL IV ONE (11:34)
[2017-05-28] MEDS ORDERED: ONDANSETRON 4 MG/2 ML VIAL IVPUSH PRN (11:50)
[2017-05-28] MEDS ORDERED: oxyCODONE HCL 5 MG TABLET PO PRN (11:50)
[2017-05-28] MEDS ORDERED: LACTATED RINGERS SOLUTION 1,000 ML IV SCH (12:00)
[2017-05-28] MEDS ORDERED: ACETAMINOPHEN INJECTION 100 ML IVPB ONE (12:01)
--- NOTE | 2017-05-28 12:44 | OP ---
DATE OF OPERATION: 05/28/2017 SURGEON: Russel Guidry MD. PREOPERATIVE DIAGNOSIS: Interstitial cystitis. POSTOPERATIVE DIAGNOSIS: Interstitial cystitis. PROCEDURE: Cystoscopy, hydrodistension bladder installation. ANESTHESIA: General, Dr. Pacheco. FINDINGS: Hyperemia consistent with interstitial cystitis. Bladder capacity 550 mL. ESTIMATED BLOOD LOSS: Minimal. DRAINS: None. PREOPERATIVE INDICATIONS: The patient is a 36-year-old female with a history of interstitial cystitis and pelvic pain. She comes to the OR for cystoscopy. DESCRIPTION OF OPERATION: The patient was brought to the OR, placed on the table in the supine position, given general anesthesia, and placed in the modified lithotomy position. The groin was prepped and draped sterilely. Cystoscopy was performed. The urethra appeared to be normal. The bladder itself is as follows: There was hyperemia throughout consistent with IC. The right ureteral orifice was visualized and normal. On the left side there was a previously incised ureterocele. This has not resolved. The UO was visualized and there was clear efflux. The bladder was filled to 550 mmHg pressure, held, and emptied. This was done 3 times. Bladder capacity ranged between 500 and 550 mL. At the end of the case a 50-mL solution of bicarbonate, heparin, lidocaine, and saline was infused into the bladder and left in place. The cystoscope was removed. The patient was woken up. RUSSEL GUIDRY M.D. [id number]
[2017-05-28 12:52] VITALS: BP 116/71; PULSE 56; TEMP 97.5
== END 2017-05-28 13:40 | disposition home or self-care (01) ==
LOC: JASU-SURG 08:54
PROVIDERS: ATTEND Urology
PROC: 0T7B8ZZ Dilation of Bladder, Via Natural or Artificial Opening Endoscopic (ICD-10-PCS; principal; 2017-05-28 10:00)
DX: N30.10 Interstitial cystitis (chronic) without hematuria (principal); N32.89 Other specified disorders of bladder
CPT/HCPCS: 84703; 94760; J0131; J1644

== ENCOUNTER 2017-10-15 08:45 | Day surgery (SDC) | payer OTHER ==
[2017-10-14 13:52] VITALS: BMI 24.7
[2017-10-15] MEDS ORDERED: LIDOCAINE 1%/EPI 1:100000 (20 ML MULTI DOSE VIAL) ONE ×2 (10:49→11:29)
[2017-10-15] MEDS ORDERED: LIDOCAINE HCL/PF 2% SDV 5ML VIAL ONE (10:51)
[2017-10-15] MEDS ORDERED: PROPOFOL 20 ML ONE ×3 (10:51→12:12)
[2017-10-15] MEDS ORDERED: MIDAZOLAM HCL 2 MG/2 ML SINGLE DOSE VIAL ONE (10:51)
[2017-10-15] MEDS ORDERED: ceFAZolin SODIUM 1 GM VIAL ONE (10:51)
--- NOTE | 2017-10-15 10:57 | HP ---
History & Physical Update - History History: No Change - Physical Physical: No Change - Assessment Assessment: No Change - Plan Plan: No Change
[2017-10-15] MEDS ORDERED: ACETAMINOPHEN 1000 MG/100 ML VIAL (NON FORMULARY) IVPB ONE (10:58)
[2017-10-15] MEDS ORDERED: IBUPROFEN 800 MG/8 ML IJ IVPB SCH (11:00)
[2017-10-15] MEDS ORDERED: DEXTROSE 5%-0.45% SALINE 1,000 ML IV SCH (11:00)
[2017-10-15] MEDS ORDERED: ceFAZolin SODIUM 1 GM VIAL IVPB ONE ×2 (11:14→11:15)
[2017-10-15] MEDS ORDERED: LIDOCAINE 1%/EPI 1:100000 (20 ML MULTI DOSE VIAL) IJ ONE ×2 (11:20)
[2017-10-15] MEDS ORDERED: KETOROLAC TROMETHAMINE 30 MG/1 ML VIAL ONE ×2 (11:26→12:01)
[2017-10-15] MEDS ORDERED: LIDOCAINE HCL 1%, 10 MG/ML (50 mL VIAL) IJ ONE ×2 (11:59)
[2017-10-15] MEDS ORDERED: ONDANSETRON 4 MG/2 ML VIAL IVPUSH PRN (12:50)
[2017-10-15] MEDS ORDERED: LACTATED RINGERS SOLUTION 1,000 ML IV SCH (13:00)
[2017-10-15 15:26] VITALS: TEMP 97.6
[2017-10-15 15:32] VITALS: BP 109/57; PULSE 72
--- NOTE | 2017-11-14 10:40 | OP ---
DATE OF OPERATION: 10/15/2017 PREOPERATIVE DIAGNOSIS: Urge urinary incontinence. POSTOPERATIVE DIAGNOSIS: Urge urinary incontinence. PROCEDURE: Stage 1 InterStim lead placement. ANESTHESIA: General. SURGEON: Russel Guidry MD ESTIMATED BLOOD LOSS: Minimal. PREOPERATIVE INDICATIONS: The patient is a 37-year-old female who suffers from urge urinary incontinence that has not responded to medications. She comes for a stage 1 test. OPERATION: The patient was brought to the OR, placed on the table in the prone position. All pressure points were protected. Patient was given IV sedation and antibiotics. The back was prepped and draped sterilely. Under fluoroscopic guidance the S3 foramina were identified and needles were placed down both sides. These were then tested and on the right side there was superior response with low-amplitude toe into flexion and anal venancio with vaginal sensation. No calf rotation was noted. The left side was the preferred needle. Using Seldinger technique the quadripole lead was placed into the left S3 foramen under fluoroscopic guidance with 1 lead straddling the anterior sacrum and the other 3 anterior to that. Again good response to low amplitude was noted. This was then tunneled underneath the skin to a pocket made over the left hip. Extension wiring was then connected and this was then tunneled out through a separate incision. The wound was closed in 2 layers and wounds were dressed. The patient was woken up. RUSSEL GUIDRY M.D. [id number]
== END 2017-10-15 15:00 | disposition home or self-care (01) ==
LOC: JASU-SURG 08:45
PROVIDERS: ATTEND Urology
PROC: B01BZZZ Fluoroscopy of Spinal Cord (ICD-10-PCS; 2017-10-15)
PROC: 4B01XVZ Measurement of Peripheral Nervous Stimulator, External Approach (ICD-10-PCS; 2017-10-15)
PROC: 01HY3MZ Insertion of Neurostimulator Lead into Peripheral Nerve, Percutaneous Approach (ICD-10-PCS; principal; 2017-10-15 09:00)
DX: N39.41 Urge incontinence (principal); R35.0 Frequency of micturition
CPT/HCPCS: 64561; L8680; L8686; 76000-TC-FY; 84703; 94760; J0131

== ENCOUNTER 2017-10-21 07:19 | Day surgery (SDC) | payer OTHER ==
[2017-10-20 16:26] VITALS: BMI 24.7
[2017-10-21] MEDS ORDERED: MIDAZOLAM HCL 2 MG/2 ML SINGLE DOSE VIAL ONE ×4 (07:52→09:04)
--- NOTE | 2017-10-21 08:31 | HP ---
History & Physical Update - History History: No Change - Physical Physical: No Change - Assessment Assessment: No Change - Plan Plan: No Change
[2017-10-21] MEDS ORDERED: ACETAMINOPHEN 1000 MG/100 ML VIAL (NON FORMULARY) IVPB ONE (08:32)
[2017-10-21] MEDS ORDERED: ceFAZolin SODIUM 1 GM VIAL ONE (08:40)
[2017-10-21] MEDS ORDERED: ceFAZolin SODIUM 1 GM VIAL IVPB ONE (08:40)
[2017-10-21] MEDS ORDERED: IBUPROFEN 800 MG/8 ML IJ IVPB SCH (08:45)
[2017-10-21] MEDS ORDERED: DEXTROSE 5%-0.45% SALINE 1,000 ML IV SCH (08:45)
[2017-10-21] MEDS ORDERED: BACITRACIN 50,000 UNITS VIAL NR ONE (08:50)
[2017-10-21] MEDS ORDERED: LIDOCAINE HCL 1%, 10 MG/ML (50 mL VIAL) IJ ONE (08:50)
[2017-10-21] MEDS ORDERED: oxyCODONE HCL 5 MG TABLET PO PRN (09:26)
[2017-10-21] MEDS ORDERED: ONDANSETRON 4 MG/2 ML VIAL IVPUSH PRN (09:26)
[2017-10-21] MEDS ORDERED: LACTATED RINGERS SOLUTION 1,000 ML IV SCH (09:30)
[2017-10-21] MEDS ORDERED: ACETAMINOPHEN INJECTION 100 ML IVPB ONE (10:09)
[2017-10-21] MEDS ORDERED: IBUPROFEN 800 MG/8 ML IJ IVPB ONE (11:00)
[2017-10-21 12:59] VITALS: BP 114/60; PULSE 83; TEMP 98.4
--- NOTE | 2017-11-14 10:36 | OP ---
DATE OF OPERATION: 10/21/2017 PROCEDURE: Stage 2 InterStim battery placement. SURGEON: Russel Guidry MD ESTIMATED BLOOD LOSS: Minimal. PREOPERATIVE INDICATIONS: The patient is a 37-year-old female with urge urinary incontinence. A week ago she underwent a stage 1 testing and regulating chief, which revealed a greater than 50% improvement in her urinary urge incontinence symptoms. Also of note, her pelvic pain has improved dramatically as well. She comes to the OR for placement of the battery. DESCRIPTION OF PROCEDURE: The patient was brought to the OR, placed on the table in prone position. All pressure points were protected. The back was prepped and draped sterilely. Using local anesthesia, the pocket made the previous week was then reopened, and extension wiring was brought out. The wound was copiously irrigated. A battery was then connected to the quadripolar lead and placed into the pocket. Impedance was noted to be normal. The wound was then closed in 2 layers and wounds were dressed. The patient was woken up. Dorene [id number]
== END 2017-10-21 12:45 | disposition home or self-care (01) ==
LOC: JASU-SURG 07:19
PROVIDERS: ATTEND Urology
PROC: 0JH70DZ Insertion of Multiple Array Stimulator Generator into Back Subcutaneous Tissue and Fascia, Open Approach (ICD-10-PCS; principal; 2017-10-21 08:00)
DX: N39.41 Urge incontinence (principal); R35.0 Frequency of micturition
CPT/HCPCS: 64590; L8679; 84703; 94760; J0131

== ENCOUNTER 2019-03-04 21:58 | Emergency (ER) | payer OTHER ==
[2019-03-04 22:09] VITALS: BP 140/75; PULSE 94; TEMP 98.8; BMI 25.6
[2019-03-04] MEDS ORDERED: KETOROLAC TROMETHAMINE 30 MG/1 ML VIAL IVPUSH ONE (23:41)
[2019-03-04] MEDS ORDERED: diazePAM 5 MG TABLET PO ONE (23:41)
[2019-03-04] MEDS ORDERED: KETOROLAC TROMETHAMINE 30 MG/1 ML VIAL IM ONE (23:41)
--- NOTE | 2019-03-04 23:41 | PDOC ---
History of Present Illness - General Chief Complaint: Pain, Acute Stated Complaint: PAIN Time Seen by Provider: 03/04/19 23:02 History Source: Patient - History of Present Illness Initial Comments: 03/05/19 01:0 38-year-old female complaining of bilateral flank pain, dysuria for the last 4 days. Patient reports that she has bladder stimulator device put in in October 2018. Patient complains of pain to the area radiating down to the left leg. Pain is worse with movement. Denies fever/chills, nausea, vomiting History of freq UTIs Past History - Past Medical History Allergies/Adverse Reactions: Allergies Allergy/AdvReac Type Severity Reaction Status Date / Time No Known Drug Allergies Allergy Verified 03/05/19 01:34 Home Medications: Ambulatory Orders Cefuroxime Axetil [Cefuroxime] 500 mg PO BID #20 tablet 10/15/17 Oxycodone HCl/Acetaminophen [Endocet 5-325 Tablet] 1 each PO Q4H PRN #30 tablet MDD 6 10/15/17 Fluconazole [Diflucan] 150 mg PO ONCE #1 tablet 10/21/17 Cyclobenzaprine HCl [Flexeril -] 10 mg PO HS PRN #7 tablet 03/05/19 Ibuprofen 600 mg PO QID PRN #20 tablet 03/05/19 Anemia: Yes (h/o) Asthma: Yes (h/o) Cancer: No Cardiac Disorders: No CVA: No COPD: No CHF: No Dementia: No Diabetes: Yes (gestational) GI Disorders: No Disorders: Yes (H/O BLADDER CYST) HTN: No Hypercholesterolemia: No Liver Disease: No Seizures: No Thyroid Disease: No - Surgical History Abdominal Surgery: Yes (gastric sleeve, tummy tuck) Orthopedic Surgery: No Other Surgical History: 03/05/19 01:50 tubal ligation - Immunization History Immunization Up to Date: Yes - Psycho Social/Smoking Cessation Hx Smoking Status: Yes Smoking History: Current every day smoker Have you smoked in the past 12 months: Yes Number of Cigarettes Smoked Daily: 5 Information on smoking cessation initiated: No 'Breaking Loose' booklet given: 10/15/17 Hx Alcohol Use: No Drug/Substance Use Hx: No Substance Use Type: Alcohol Hx Substance Use Treatment: No Abd/GI Specific PMHX - Complaint Specific PMHX Colitis: No Diverticulitis: No Gall Bladder Disease: No GERD: No Hepatitis: No Irritable Bowel Synd (IBS): No Pancreatitis: No GI Ulcer Disease: No Review of Systems - Review of Systems Able to Perform ROS?: Yes Is the patient limited [place]ic proficient: No : Yes: Dysuria, Flank Pain, Urgency Musculoskeletal: Yes: Back Pain *Physical Exam - Vital Signs Last Vital Signs Temp Pulse Resp BP Pulse Ox 98.8 F 94 H 19 140/75 100 03/04/19 22:06 03/04/19 22:06 03/04/19 22:06 03/04/19 22:06 03/04/19 22:06 - Physical Exam General Appearance: Yes: Appropriately Dressed Respiratory/Chest: positive: Lungs Clear, Normal Breath Sounds Cardiovascular: positive: Regular Rhythm, Regular Rate Gastrointestinal/Abdominal: positive: Normal Bowel Sounds, Soft. negative: Tender Musculoskeletal: positive: Normal Inspection, CVA Tenderness (R), CVA Tenderness (L) Integumentary: positive: Normal Color, Dry, Warm, Other (left lower back device palpated under skn. no erythema, no edema or warmth noted. no streaking to skin) ED Treatment Course - LABORATORY CBC & Chemistry Diagram: 03/05/19 00:09 03/05/19 00:09 ED Progress Note - Progress Note Progress Note: 03/05/19 01:48 A: flank pain/ back pain P: cbc cmp ua urine culture Medical Decision Making - Medical Decision Making 03/05/19 01:22 pain improved after toradol and valium Discharge - Discharge Information Problems reviewed: Yes Clinical Impression/Diagnosis: Flank pain Back pain Qualifiers: Back pain location: low back pain Chronicity: acute Back pain laterality: left Sciatica presence: with sciatica Sciatica laterality: sciatica of left side Qualified Code(s): M54.42 - Lumbago with sciatica, left side Disposition: HOME - Additional Discharge Information Prescriptions: Cyclobenzaprine HCl [Flexeril -] 10 mg PO HS PRN #7 tablet PRN Reason: Muscle Spasms Ibuprofen 600 mg PO QID PRN #20 tablet PRN Reason: Back Pain - Follow up/Referral Referrals: Melida Albert [Primary Care Provider] - Russel Guidry MD [Staff Physician] - - Patient Discharge Instructions Patient Printed Discharge Instructions: Back Pain (Alternative Therapy) Additional Instructions: please follow up with Dr. Burns as soon as possible return to the ER for any worsening symptoms Do light stretches Apply ice to the area for the first 24 hours. Then alternate with ice and heat after. Take ibuprofen every 6 hours as needed for pain. Take Flexeril as prescribed for muscle spasm. Flexeril can make you sleepy, do not drive or operate heavy machinery after taking the medication. Follow-up with an orthopedic doctor if symptoms persist. A referral was given to you today. Return to the emergency room for any worsening symptoms. - Post Discharge Activity Work/Back to School Note: Back to Work
[2019-03-05] MEDS ORDERED: diazePAM 5 MG TABLET ONE (00:31)
[2019-03-05] MEDS ORDERED: KETOROLAC TROMETHAMINE 30 MG/1 ML VIAL ONE (00:31)
[2019-03-05] MEDS ORDERED: SODIUM CHLORIDE 1,000 ML IV STA (00:45)
[2019-03-05 00:48] LABS: BASO % 0.4 % (0-2.0); EOS % 4.1 % (0-4.5); HEMATOCRIT 39.6 % (32.4-45.2); HEMOGLOBIN 13.1 GM/dL (10.7-15.3); LYMPH % 44.3 % (8-40); MCH 29.1 pg (25.7-33.7); MCHC 33.1 g/dl (32.0-36.0); MEAN CELL VOLUME 87.7 fl (80-96); MEAN PLT VOLUME 7.5 fl (7.5-11.1); MONO % 7.5 % (3.8-10.2); NEUT % 43.7 % (42.8-82.8); PLATELET COUNT 322 K/MM3 (134-434); RBC 4.51 M/mm3 (3.60-5.2); RDW 12.5 % (11.6-15.6); WHITE BLOOD COUNT 8.7 K/mm3 (4.0-10.0)
[2019-03-05 01:18] LABS: PH,URINE 5.5 (5.0-8.0); URINE APPEARANCE CLOUDY; URINE BILIRUBIN NEGATIVE (NEGATIVE); URINE COLOR YELLOW; URINE GLUCOSE (UA) NEGATIVE (NEGATIVE); URINE KETONE NEGATIVE (NEGATIVE); URINE LEUK ESTERASE NEGATIVE (NEGATIVE); URINE NITRITE NEGATIVE (NEGATIVE); URINE PROTEIN NEGATIVE (NEGATIVE); URINE UROBILINOGEN 0.2 mg/dL (0.2-1.0)
[2019-03-05 01:26] LABS: ALBUMIN 3.7 g/dl (3.4-5.0); BILIRUBIN,TOTAL 0.2 mg/dL (0.2-1); CALCIUM 8.4 mg/dL (8.5-10.1); CREATININE 0.5 mg/dL (0.55-1.3); TOT PROT 6.6 g/dl (6.4-8.2)
--- NOTE | 2019-03-05 06:28 | PDOC ---
*Physical Exam - Vital Signs Last Vital Signs Temp Pulse Resp BP Pulse Ox 98.8 F 94 H 19 140/75 100 03/04/19 22:06 03/04/19 22:06 03/04/19 22:06 03/04/19 22:06 03/04/19 22:06 ED Treatment Course - LABORATORY CBC & Chemistry Diagram: 03/05/19 00:09 03/05/19 00:09 - ADDITIONAL ORDERS Additional order review: Laboratory Results 03/05/19 03/05/19 03/05/19 01:31 00:09 00:09 Sodium 140 Potassium 4.0 Chloride 107 Carbon Dioxide 27 Anion Gap 6 L BUN 9.0 Creatinine 0.5 L Est GFR (CKD-EPI)AfAm 141.30 Est GFR (CKD-EPI)NonAf 121.92 Random Glucose 86 Calcium 8.4 L Total Bilirubin 0.2 AST 23 ALT 37 Alkaline Phosphatase 44 L Total Protein 6.6 Albumin 3.7 Urine Color Yellow Urine Appearance Cloudy Urine pH 5.5 D Ur Specific [place] 1.024 Urine Protein Negative Urine Glucose (UA) Negative Urine Ketones Negative Urine Blood Negative Urine Nitrite Negative Urine Bilirubin Negative Urine Urobilinogen 0.2 Ur Leukocyte Esterase Negative Urine HCG, Qual Negative 03/05/19 00:09 RBC 4.51 MCV 87.7 MCHC 33.1 RDW 12.5 D MPV 7.5 Neutrophils % 43.7 D Lymphocytes % 44.3 H D Monocytes % 7.5 Eosinophils % 4.1 D Basophils % 0.4 - Medications Given in the ED: ED Medications Discontinued Medications Generic Name Dose Route Start Last Admin Trade Name Freq PRN Reason Stop Dose Admin Diazepam 5 mg 03/04/19 23:41 03/05/19 00:33 Valium - PO 03/04/19 23:42 5 mg ONCE ONE Administration Sodium Chloride 1,000 mls @ 1,000 mls/hr 03/05/19 00:45 03/05/19 00:47 Normal Saline - IV 03/05/19 01:44 1,000 mls/hr ASDIR STA Administration Ketorolac Tromethamine 30 mg 03/04/19 23:41 03/05/19 00:33 Toradol Injection - IM 03/04/19 23:42 Not Given ONCE ONE Ketorolac Tromethamine 30 mg 03/04/19 23:41 03/05/19 00:33 Toradol Injection - IVPUSH 03/04/19 23:42 30 mg ONCE ONE Administration Medical Decision Making - Medical Decision Making 03/05/19 06:27 Case reviewed, I was available for consultation during the patient's clinical course Discharge - Discharge Information Problems reviewed: Yes Clinical Impression/Diagnosis: Flank pain Back pain Qualifiers: Back pain location: low back pain Chronicity: acute Back pain laterality: left Sciatica presence: with sciatica Sciatica laterality: sciatica of left side Qualified Code(s): M54.42 - Lumbago with sciatica, left side Disposition: HOME - Additional Discharge Information Prescriptions: Cyclobenzaprine HCl [Flexeril -] 10 mg PO HS PRN #7 tablet PRN Reason: Muscle Spasms Ibuprofen 600 mg PO QID PRN #20 tablet PRN Reason: Back Pain - Follow up/Referral Referrals: Russel Guidry MD [Staff Physician] - Melida Albert [Primary Care Provider] - - Patient Discharge Instructions Patient Printed Discharge Instructions: Back Pain (Alternative Therapy) Additional Instructions: please follow up with Dr. Burns as soon as possible return to the ER for any worsening symptoms Do light stretches Apply ice to the area for the first 24 hours. Then alternate with ice and heat after. Take ibuprofen every 6 hours as needed for pain. Take Flexeril as prescribed for muscle spasm. Flexeril can make you sleepy, do not drive or operate heavy machinery after taking the medication. Follow-up with an orthopedic doctor if symptoms persist. A referral was given to you today. Return to the emergency room for any worsening symptoms. - Post Discharge Activity Work/Back to School Note: Back to Work
== END 2019-03-05 02:09 | disposition home or self-care (01) ==
LOC: JER 21:58
PROC: 3E0337Z Introduction of Electrolytic and Water Balance Substance into Peripheral Vein, Percutaneous Approach (ICD-10-PCS; principal; 2019-03-04)
PROC: 3E0333Z Introduction of Anti-inflammatory into Peripheral Vein, Percutaneous Approach (ICD-10-PCS; 2019-03-04)
DX: M54.42 Lumbago with sciatica, left side (principal); Z87.440 Personal history of urinary (tract) infections; Z86.2 Personal history of diseases of the blood and blood-forming organs and certain disorders involving the immune mechanism; Z87.09 Personal history of other diseases of the respiratory system; Z96.0 Presence of urogenital implants
CPT/HCPCS: 36415; 80053; 81003; 84703; 85025; 87086; 99284-25; J7030

== ENCOUNTER 2020-10-28 17:00 | Emergency (ER) | payer OTHER ==
[2020-10-28 17:12] VITALS: BP 143/96; PULSE 76; TEMP 98.2; BMI 31.1
[2020-10-28 18:24] LABS: CALCIUM OXALATE CRYSTALS FEW /hpf (NONE SEEN); EPITHELIAL CELLS RARE /hpf
[2020-10-28] MEDS ORDERED: KETOROLAC TROMETHAMINE 15 MG/ML VIAL IVPUSH ONE (19:07)
[2020-10-28] MEDS ORDERED: KETOROLAC TROMETHAMINE 15 MG/ML VIAL ONE (19:11)
[2020-10-28 19:35] LABS: BASO % 5.2 % (0-2.0); EOS % 3.2 % (0-4.5); HEMATOCRIT 37.3 % (32.4-45.2); HEMOGLOBIN 13.1 GM/dl (10.7-15.3); LYMPH % 30.9 % (8-40); MCH 31.6 pg (25.7-33.7); MCHC 35.1 g/dl (32.0-36.0); MEAN PLT VOLUME 7.7 fl (7.5-11.1); MONO % 4.2 % (3.8-10.2); NEUT % 56.5 % (42.8-82.8); PLATELET COUNT 334 10^3/uL (134-434); RBC 4.14 M/mm3 (3.60-5.2); RDW 11.9 % (11.6-15.6); WHITE BLOOD COUNT 9.2 K/mm3 (4.0-10.8)
[2020-10-28 19:52] LABS: ALBUMIN 3.9 g/dl (3.4-5.0); BILIRUBIN,TOTAL 0.4 mg/dl (0.2-1); CALCIUM 8.9 mg/dl (8.5-10); CREATININE 0.5 mg/dl (0.55-1.3); TOT PROT 6.6 g/dl (6.4-8.2)
== END 2020-10-28 21:10 | disposition home or self-care (01) ==
LOC: FER 17:00
PROC: 3E0333Z Introduction of Anti-inflammatory into Peripheral Vein, Percutaneous Approach (ICD-10-PCS; principal; 2020-10-28)
DX: R10.9 Unspecified abdominal pain (principal)
CPT/HCPCS: 36415; 74176-TC; 80053; 81003; 81015; 84703; 85025; 87086; 87491; 87591; 99284-25

== ENCOUNTER 2021-05-25 17:32 | Emergency (ER) | payer OTHER ==
[2021-05-25 18:00] VITALS: BP 135/83; PULSE 63; TEMP 98.9; BMI 30.2
[2021-05-25 19:19] LABS: INR 1.02 (0.83-1.09); PROTHROMBIN TIME (PATIENT) 11.7 SEC (9.7-13.0)
[2021-05-25 19:19] LABS: EPITHELIAL CELLS MODERATE /hpf; URIC ACID CRYSTALS 1+ /hpf (NONE SEEN)
[2021-05-25 19:21] LABS: ACTIVATED PTT 31.9 SECONDS (25.2-36.5)
[2021-05-25 19:25] LABS: ALBUMIN 3.9 g/dl (3.4-5.0); BILIRUBIN,TOTAL 0.3 mg/dl (0.2-1); CALCIUM 8.8 mg/dl (8.5-10); CREATININE 0.4 mg/dl (0.55-1.3); MAGNESIUM 2.1 mg/dL (1.8-2.4); TOT PROT 6.8 g/dl (6.4-8.2)
[2021-05-25] MEDS ORDERED: ACETAMINOPHEN 1000 MG/100 ML BAG IVPB ONE (20:08)
[2021-05-25] MEDS ORDERED: ACETAMINOPHEN INJECTION 100 ML IVPB ONE (20:09)
[2021-05-25 21:48] LABS: BASO % 0.7 % (0-2.0); EOS % 5.1 % (0-4.5); HEMATOCRIT 36.8 % (32.4-45.2); HEMOGLOBIN 12.8 GM/dL (10.7-15.3); LYMPH % 38.6 % (8-40); MCH 30.7 pg (25.7-33.7); MCHC 34.8 g/dl (32.0-36.0); MEAN CELL VOLUME 88.2 fl (80-96); MEAN PLT VOLUME 7.8 fl (7.5-11.1); MONO % 6.4 % (3.8-10.2); NEUT % 49.2 % (42.8-82.8); PLATELET COUNT 308 10^3/uL (134-434); RBC 4.18 M/mm3 (3.60-5.2); RDW 12.8 % (11.6-15.6); WHITE BLOOD COUNT 7.9 K/mm3 (4.0-10.0)
== END 2021-05-25 23:24 | disposition home or self-care (01) ==
LOC: FER 17:32
PROC: 3E033GC Introduction of Other Therapeutic Substance into Peripheral Vein, Percutaneous Approach (ICD-10-PCS; principal; 2021-05-25)
DX: R33.9 Retention of urine, unspecified (principal)
CPT/HCPCS: 36415; 74177-TC; 80053; 81003; 81015; 83735; 84703; 85025; 85610; 85730; 86850; 86900; 86901; 87086; 99285-25; Q9967

== ENCOUNTER 2021-12-13 04:08 | Day surgery (SDC) | payer OTHER ==
[2021-12-11 16:03] VITALS: BMI 27.4
[2021-12-13] MEDS ORDERED: LIDOCAINE HCL 2% JELLY 10 ML CARTRIDGE ONE (09:49)
[2021-12-13] MEDS ORDERED: HEPARIN NA (PORCINE) 5,000 UNITS/ML 1ML VIAL ONE (09:49)
[2021-12-13] MEDS ORDERED: LIDOCAINE HCL 1%, 10 MG/ML (20ML VIAL) ONE (09:49)
[2021-12-13] MEDS ORDERED: SODIUM CHLORIDE 0.9% P/F 10 ML VIAL IJ ONE (09:50)
[2021-12-13] MEDS ORDERED: SODIUM BICARBONATE 8.4% - 50 ML ONE (09:50)
[2021-12-13] MEDS ORDERED: ACETAMINOPHEN 1000 MG/100 ML BAG IVPB ONE (10:41)
[2021-12-13] MEDS ORDERED: DEXTROSE 5%-0.45% SALINE 1,000 ML IV SCH (10:45)
[2021-12-13] MEDS ORDERED: IBUPROFEN 800 MG/8 ML IJ IVPB SCH (10:45)
[2021-12-13] MEDS ORDERED: HEPARIN NA (PORCINE) 5,000 UNITS/ML 1ML VIAL SQ ONE (11:00)
[2021-12-13] MEDS ORDERED: LIDOCAINE HCL 1%, 10 MG/ML (20ML VIAL) NR ONE (11:00)
[2021-12-13] MEDS ORDERED: SODIUM BICARBONATE 8.4% 50 MEQ/50 ML VIAL IV ONE (11:00)
[2021-12-13] MEDS ORDERED: LIDOCAINE HCL 2% JELLY (30 ML/TUBE) TP ONE (11:00)
[2021-12-13] MEDS ORDERED: MIDAZOLAM HCL 2 MG/2 ML SINGLE DOSE VIAL ONE (11:01)
[2021-12-13] MEDS ORDERED: PROPOFOL 20 ML ONE (11:28)
[2021-12-13] MEDS ORDERED: ONDANSETRON 4 MG/2 ML VIAL IVPUSH PRN (11:51)
[2021-12-13] MEDS ORDERED: ACETAMINOPHEN INJECTION 100 ML IVPB ONE (12:34)
[2021-12-13 14:03] VITALS: RESP 16
[2021-12-13 14:11] VITALS: BP 134/79; PULSE 77; TEMP 97.7
== END 2021-12-13 14:11 | disposition home or self-care (01) ==
LOC: JASU-SURG 04:08
PROVIDERS: ATTEND Urology
PROC: 0T7B8ZZ Dilation of Bladder, Via Natural or Artificial Opening Endoscopic (ICD-10-PCS; principal; 2021-12-13 12:00)
PROC: 3E0K8GC Introduction of Other Therapeutic Substance into Genitourinary Tract, Via Natural or Artificial Opening Endoscopic (ICD-10-PCS; 2021-12-13 12:00)
DX: N30.10 Interstitial cystitis (chronic) without hematuria (principal)
CPT/HCPCS: 81025; 94760; J1644

== ENCOUNTER → 2022-07-03 | Day surgery (SDC) | payer OTHER | END | disposition home or self-care (01) | LOC: JRADUS-SUR 13:07 | PROVIDERS: ATTEND Obstetrics & Gynecology | PROC: 0H9T3ZX Drainage of Right Breast, Percutaneous Approach, Diagnostic (ICD-10-PCS; principal; 2022-07-03) | PROC: 07D53ZX Extraction of Right Axillary Lymphatic, Percutaneous Approach, Diagnostic (ICD-10-PCS; 2022-07-03) | DX: C50.911 Malignant neoplasm of unspecified site of right female breast (principal); C77.3 Secondary and unspecified malignant neoplasm of axilla and upper limb lymph nodes | CPT/HCPCS: 19083; 19084; 77065-TC; 87899; 88305-TC; 88341-TC; 88342-TC; A4648 ==

== ENCOUNTER 2022-07-23 04:02 | Day surgery (SDC) | payer OTHER ==
[2022-07-19 15:18] VITALS: BMI 27.4
[2022-07-23] MEDS ORDERED: ceFAZolin SODIUM 1 GM VIAL IVPB ONE (07:50)
[2022-07-23] MEDS ORDERED: LIDOCAINE 1% P/F 10 MG/ML VIAL INF ONE ×2 (07:54)
[2022-07-23 08:48] VITALS: RESP 18
[2022-07-23 09:48] VITALS: BP 124/80; PULSE 71; TEMP 97.5
== END 2022-07-23 10:03 | disposition home or self-care (01) ==
LOC: JASU-SURG 04:02
PROVIDERS: ATTEND Surgery
PROC: B518ZZA Fluoroscopy of Superior Vena Cava, Guidance (ICD-10-PCS; 2022-07-23)
PROC: 02HV33Z Insertion of Infusion Device into Superior Vena Cava, Percutaneous Approach (ICD-10-PCS; 2022-07-23)
PROC: B518ZZA Fluoroscopy of Superior Vena Cava, Guidance (ICD-10-PCS; 2022-07-23)
PROC: 02HV33Z Insertion of Infusion Device into Superior Vena Cava, Percutaneous Approach (ICD-10-PCS; principal; 2022-07-23 07:30)
DX: C50.911 Malignant neoplasm of unspecified site of right female breast (principal)
CPT/HCPCS: 36561; C1788; 71045-TC-FY; 76000-TC-FY; 81025; C1751; J1644

== ENCOUNTER 2022-07-31 12:02 | Day surgery (SDC) | payer OTHER ==
[~2022-07-31 12:02] MED LIST: DEXAMETHASONE SODIUM PHOSPHATE 10 MG in SODIUM CHLORIDE 50 ML IVPB ONE; FOSAPREPITANT DIMEGLUMINE 150 MG in SODIUM CHLORIDE 145 ML IVPB ONE; PALONOSETRON HCL 0.25 MG/5 ML VIAL IVPUSH ONE
[2022-07-31] MEDS ORDERED: PERTUZUMAB 840 MG in SODIUM CHLORIDE 250 ML IVPB ONE (12:30)
[2022-07-31 13:04] LABS: BASO % 0.5 % (0-2.0); EOS % 2.4 % (0-4.5); HEMATOCRIT 38.7 % (32.4-45.2); LYMPH % 24.4 % (8-40); MCH 28.7 pg (25.7-33.7); MCHC 33.6 g/dl (32.0-36.0); MEAN CELL VOLUME 85.5 fl (80-96); MEAN PLT VOLUME 7.8 fl (7.5-11.1); NEUT % 65.7 % (42.8-82.8); PLATELET COUNT 302 10^3/uL (134-434); RBC 4.53 M/mm3 (3.60-5.2); RDW 12.6 % (11.6-15.6); WHITE BLOOD COUNT 6.6 K/mm3 (4.0-10.0)
[2022-07-31 13:24] LABS: POTASSIUM 3.9 mmol/L (3.5-5.1)
[2022-07-31 13:26] LABS: CALCIUM 9.1 mg/dL (8.5-10.1)
[2022-07-31 13:27] LABS: ALBUMIN 3.6 g/dl (3.4-5.0); BLOOD UREA NITROGEN 7.6 mg/dL (7-18)
[2022-07-31 13:29] LABS: BILIRUBIN,DIRECT 0.2 mg/dL (0.0-0.2)
[2022-07-31 13:30] LABS: CREATININE 0.4 mg/dL (0.55-1.3)
[2022-07-31] MEDS ORDERED: TRASTUZUMAB ANNS IVPB ONE (13:30)
[2022-07-31] MEDS ORDERED: SODIUM CHLORIDE IVPB ONE (13:30)
[2022-07-31 13:31] LABS: BILIRUBIN,TOTAL 0.5 mg/dL (0.2-1); TOT PROT 6.9 g/dl (6.4-8.2)
[2022-07-31] MEDS: PORTA CATH FLUSH 10 ML IVPUSH PRN ×2 (14:00→19:47)
[2022-07-31] MEDS ORDERED: DOCETAXEL 132 MG in SODIUM CHLORIDE 250 ML IV ONE (15:00)
[2022-07-31] MEDS ORDERED: CYCLOPHOSPHAMIDE INJECTION 1,040 MG in SODIUM CHLORIDE 250 ML IVPB ONE (15:00)
[2022-07-31] MEDS ORDERED: ACETAMINOPHEN 325 MG TABLET (FP) PO ONE (17:45)
[2022-07-31] MEDS ORDERED: methylPREDNISolone NA SUCC 125 MG/2 ML VIAL IVPUSH ONE (18:00)
[2022-07-31 18:52] VITALS: TEMP 98.2
[2022-07-31 19:33] VITALS: BP 141/87; PULSE 69; RESP 20
== END 2022-07-31 19:57 | disposition home or self-care (01) ==
LOC: JONCCHEMO 12:02
PROVIDERS: ATTEND Specialist
DX: Z51.11 Encounter for antineoplastic chemotherapy (principal); C50.911 Malignant neoplasm of unspecified site of right female breast; Z17.0 Estrogen receptor positive status [ER+]
CPT/HCPCS: 36415; 80048; 80076; 82306; 85025; 96367; 96375; 96413; 96417; J1453; J2469; J9070; J9306; Q5117

== ENCOUNTER 2022-08-02 12:57 | Day surgery (SDC) | payer OTHER ==
[~2022-08-02 12:57] MED LIST changes: -DEXAMETHASONE SODIUM PHOSPHATE 10 MG in SODIUM CHLORIDE 50 ML IVPB ONE; -FOSAPREPITANT DIMEGLUMINE 150 MG in SODIUM CHLORIDE 145 ML IVPB ONE; -PALONOSETRON HCL 0.25 MG/5 ML VIAL IVPUSH ONE; +PEGFILGRASTIM-CBQV (UDENYCA) 6 MG/0.6 ML SYRINGE SQ ONE
[2022-08-02 16:37] VITALS: BP 114/67; PULSE 74; RESP 18; TEMP 97.9
== END 2022-08-02 16:41 | disposition home or self-care (01) ==
LOC: J7W 12:57 → JONCCHEMO 12:57
PROVIDERS: ATTEND Specialist
PROC: 3E013GC Introduction of Other Therapeutic Substance into Subcutaneous Tissue, Percutaneous Approach (ICD-10-PCS; principal; 2022-08-02)
DX: C50.911 Malignant neoplasm of unspecified site of right female breast (principal); Z17.0 Estrogen receptor positive status [ER+]; Z76.89 Persons encountering health services in other specified circumstances
CPT/HCPCS: 96372; Q5111

== ENCOUNTER 2022-08-07 11:34 | Day surgery (SDC) | payer OTHER ==
[2022-08-07] MEDS ORDERED: SODIUM CHLORIDE 1,000 ML IV ONE (12:00)
[2022-08-07 17:41] VITALS: PULSE 75; TEMP 98.2
[2022-08-07] MEDS ORDERED: PORTA CATH FLUSH 10 ML IVPUSH PRN ×2 (17:44→17:45)
[2022-08-07 17:45] VITALS: BP 129/78; RESP 20
== END 2022-08-07 13:25 | disposition home or self-care (01) ==
LOC: JONCNONCHE 11:34 → J7W 11:46 → JONCNONCHE 13:25
PROVIDERS: ATTEND Specialist
PROC: 3E043GC Introduction of Other Therapeutic Substance into Central Vein, Percutaneous Approach (ICD-10-PCS; principal; 2022-08-07)
DX: C50.911 Malignant neoplasm of unspecified site of right female breast (principal)
CPT/HCPCS: 96360; 96361

== ENCOUNTER 2022-08-14 09:59 | Day surgery (SDC) | payer OTHER ==
[2022-08-14 10:27] LABS: BASO % 0.5 % (0-2.0); EOS % 0.2 % (0-4.5); HEMATOCRIT 36.6 % (32.4-45.2); HEMOGLOBIN 12.5 GM/dL (10.7-15.3); LYMPH % 23.4 % (8-40); MCH 29.1 pg (25.7-33.7); MCHC 34.2 g/dl (32.0-36.0); MEAN CELL VOLUME 85.2 fl (80-96); MEAN PLT VOLUME 7.3 fl (7.5-11.1); MONO % 5.9 % (3.8-10.2); PLATELET COUNT 259 10^3/uL (134-434); RBC 4.29 M/mm3 (3.60-5.2); RDW 12.6 % (11.6-15.6); WHITE BLOOD COUNT 7.7 K/mm3 (4.0-10.0)
[2022-08-14 10:44] LABS: POTASSIUM 3.9 mmol/L (3.5-5.1)
[2022-08-14 10:48] LABS: ALBUMIN 3.6 g/dl (3.4-5.0); BLOOD UREA NITROGEN 6.3 mg/dL (7-18); CALCIUM 8.6 mg/dL (8.5-10.1)
[2022-08-14 10:51] LABS: BILIRUBIN,DIRECT 0.1 mg/dL (0.0-0.2); CREATININE 0.4 mg/dL (0.55-1.3)
[2022-08-14 10:53] LABS: BILIRUBIN,TOTAL 0.3 mg/dL (0.2-1); TOT PROT 6.5 g/dl (6.4-8.2)
[2022-08-14] MEDS ORDERED: SODIUM CHLORIDE 1,000 ML IV ONE (11:45)
[2022-08-14] MEDS ORDERED: PORTA CATH FLUSH 10 ML IVPUSH PRN (18:26)
[2022-08-14 18:27] VITALS: BP 139/67; PULSE 64; RESP 20; TEMP 98.4
== END 2022-08-14 14:00 | disposition home or self-care (01) ==
LOC: JONCCHEMO 09:59
PROVIDERS: ATTEND Specialist
PROC: 3E0437Z Introduction of Electrolytic and Water Balance Substance into Central Vein, Percutaneous Approach (ICD-10-PCS; principal; 2022-08-14)
DX: C50.919 Malignant neoplasm of unspecified site of unspecified female breast (principal); Z76.89 Persons encountering health services in other specified circumstances
CPT/HCPCS: 36415; 80048; 80076; 85025; 96360; 96361

== ENCOUNTER 2022-08-21 10:18 | Day surgery (SDC) | payer OTHER ==
[2022-08-21 10:33] LABS: BASO % 0.1 % (0-2.0); HEMATOCRIT 35.8 % (32.4-45.2); HEMOGLOBIN 11.9 GM/dL (10.7-15.3); LYMPH % 6.6 % (8-40); MCH 28.8 pg (25.7-33.7); MCHC 33.3 g/dl (32.0-36.0); MEAN CELL VOLUME 86.4 fl (80-96); MEAN PLT VOLUME 7.5 fl (7.5-11.1); MONO % 6.1 % (3.8-10.2); NEUT % 87.2 % (42.8-82.8); PLATELET COUNT 459 10^3/uL (134-434); RBC 4.15 M/mm3 (3.60-5.2); RDW 12.7 % (11.6-15.6); WHITE BLOOD COUNT 17.4 K/mm3 (4.0-10.0)
[2022-08-21 11:01] LABS: POTASSIUM 3.7 mmol/L (3.5-5.1)
[2022-08-21 11:03] LABS: CALCIUM 9.6 mg/dL (8.5-10.1)
[2022-08-21 11:04] LABS: ALBUMIN 3.9 g/dl (3.4-5.0); BLOOD UREA NITROGEN 8.1 mg/dL (7-18)
[2022-08-21 11:06] LABS: BILIRUBIN,DIRECT 0.1 mg/dL (0.0-0.2); CREATININE 0.6 mg/dL (0.55-1.3)
[2022-08-21 11:08] LABS: BILIRUBIN,TOTAL 0.4 mg/dL (0.2-1); TOT PROT 6.8 g/dl (6.4-8.2)
[2022-08-21] MEDS ORDERED: DEXAMETHASONE SODIUM PHOSPHATE 10 MG in SODIUM CHLORIDE 50 ML IVPB ONE (12:30)
[2022-08-21] MEDS ORDERED: PALONOSETRON HCL 0.25 MG/5 ML VIAL IVPUSH ONE (12:30)
[2022-08-21] MEDS ORDERED: FOSAPREPITANT DIMEGLUMINE 150 MG in SODIUM CHLORIDE 145 ML IVPB ONE (12:30)
[2022-08-21] MEDS ORDERED: PERTUZUMAB 420 MG in SODIUM CHLORIDE 250 ML IVPB ONE (13:00)
[2022-08-21] MEDS ORDERED: TRASTUZUMAB ANNS IVPB ONE (13:30)
[2022-08-21] MEDS ORDERED: SODIUM CHLORIDE IVPB ONE ×2 (13:30→14:00)
[2022-08-21] MEDS ORDERED: CYCLOPHOSPHAMIDE IVPB ONE (14:00)
[2022-08-21] MEDS ORDERED: DOCETAXEL 132 MG in SODIUM CHLORIDE 250 ML IV ONE (16:00)
[2022-08-21] MEDS ORDERED: FAMOTIDINE 20 MG TABLET PO ONE (16:15)
[2022-08-21 18:15] VITALS: RESP 20; TEMP 98
[2022-08-21] MEDS ORDERED: PORTA CATH FLUSH 10 ML IVPUSH PRN ×2 (18:22→18:45)
[2022-08-21 18:45] VITALS: BP 132/85; PULSE 59
== END 2022-08-21 18:48 | disposition home or self-care (01) ==
LOC: JONCCHEMO 10:18 → J7W 10:19 → JONCCHEMO 18:48
PROVIDERS: ATTEND Specialist
DX: Z51.11 Encounter for antineoplastic chemotherapy (principal); C50.919 Malignant neoplasm of unspecified site of unspecified female breast
CPT/HCPCS: 36415; 80048; 80076; 85025; 96367; 96375; 96413; 96415; 96417; J1453; J2469; J9070; J9306; Q5117

== ENCOUNTER 2022-08-23 13:15 | Day surgery (SDC) | payer OTHER ==
[2022-08-23 16:44] VITALS: BP 132/71; PULSE 87; RESP 18; TEMP 98.2
== END 2022-08-23 13:55 | disposition home or self-care (01) ==
LOC: J7W 13:15 → JONCCHEMO 13:15
PROVIDERS: ATTEND Specialist
DX: C50.911 Malignant neoplasm of unspecified site of right female breast (principal); Z76.89 Persons encountering health services in other specified circumstances
CPT/HCPCS: 96372; Q5111

== ENCOUNTER 2022-09-10 10:24 | Day surgery (SDC) | payer OTHER ==
[~2022-09-10 10:24] MED LIST changes: +DEXAMETHASONE SODIUM PHOSPHATE 10 MG in SODIUM CHLORIDE 50 ML IVPB ONE; +FOSAPREPITANT DIMEGLUMINE 150 MG in SODIUM CHLORIDE 145 ML IVPB ONE; +PALONOSETRON HCL 0.25 MG/5 ML VIAL IVPUSH ONE; -PEGFILGRASTIM-CBQV (UDENYCA) 6 MG/0.6 ML SYRINGE SQ ONE; +PERTUZUMAB 420 MG in SODIUM CHLORIDE 250 ML IVPB ONE; +TRASTUZUMAB-ANNS 410 MG in SODIUM CHLORIDE 250 ML IVPB ONE
[2022-09-10] MEDS ORDERED: SODIUM CHLORIDE IVPB ONE (10:30)
[2022-09-10] MEDS ORDERED: CYCLOPHOSPHAMIDE IVPB ONE (10:30)
[2022-09-10] MEDS ORDERED: DOCETAXEL 132 MG in SODIUM CHLORIDE 250 ML IV ONE (12:30)
[2022-09-10] MEDS ORDERED: FAMOTIDINE 20 MG TABLET PO ONE (13:45)
[2022-09-10 17:17] VITALS: BP 132/76; PULSE 89; RESP 20; TEMP 98.2
[2022-09-10] MEDS ORDERED: PORTA CATH FLUSH 10 ML IVPUSH PRN (17:17)
== END 2022-09-10 17:10 | disposition home or self-care (01) ==
LOC: JONCCHEMO 10:24 → J7W 10:36 → JONCCHEMO 17:10
PROVIDERS: ATTEND Internal Medicine Hematology & Oncology
DX: Z51.11 Encounter for antineoplastic chemotherapy (principal); C50.011 Malignant neoplasm of nipple and areola, right female breast
CPT/HCPCS: 96367; 96375; 96413; 96415; 96417; J1453; J2469; J9070; J9306; Q5117

== ENCOUNTER 2022-09-11 15:00 | Day surgery (SDC) | payer OTHER ==
[~2022-09-11 15:00] MED LIST changes: -DEXAMETHASONE SODIUM PHOSPHATE 10 MG in SODIUM CHLORIDE 50 ML IVPB ONE; -FOSAPREPITANT DIMEGLUMINE 150 MG in SODIUM CHLORIDE 145 ML IVPB ONE; -PALONOSETRON HCL 0.25 MG/5 ML VIAL IVPUSH ONE; +PEGFILGRASTIM-CBQV (UDENYCA) 6 MG/0.6 ML SYRINGE SQ ONE; -PERTUZUMAB 420 MG in SODIUM CHLORIDE 250 ML IVPB ONE; -TRASTUZUMAB-ANNS 410 MG in SODIUM CHLORIDE 250 ML IVPB ONE
[2022-09-11 18:42] VITALS: BP 131/79; PULSE 58; RESP 20; TEMP 97.6
== END 2022-09-11 15:30 | disposition home or self-care (01) ==
LOC: J7W 15:00 → JONCCHEMO 15:00
PROVIDERS: ATTEND Internal Medicine Hematology & Oncology
DX: Z51.11 Encounter for antineoplastic chemotherapy (principal); C50.011 Malignant neoplasm of nipple and areola, right female breast; Z76.89 Persons encountering health services in other specified circumstances
CPT/HCPCS: 96372; Q5111

== ENCOUNTER 2022-10-01 10:20 | Day surgery (SDC) | payer OTHER ==
[~2022-10-01 10:20] MED LIST changes: +DEXAMETHASONE SODIUM PHOSPHATE 10 MG in SODIUM CHLORIDE 50 ML IVPB ONE; +FOSAPREPITANT DIMEGLUMINE 150 MG in SODIUM CHLORIDE 145 ML IVPB ONE; +PALONOSETRON HCL 0.25 MG/5 ML VIAL IVPUSH ONE; -PEGFILGRASTIM-CBQV (UDENYCA) 6 MG/0.6 ML SYRINGE SQ ONE
[2022-10-01] MEDS ORDERED: PERTUZUMAB 420 MG in SODIUM CHLORIDE 250 ML IVPB ONE (10:30)
[2022-10-01 10:46] LABS: BASO % 0.2 % (0-2.0); HEMATOCRIT 30.9 % (32.4-45.2); HEMOGLOBIN 10.6 GM/dL (10.7-15.3); LYMPH % 9.7 % (8-40); MCH 29.2 pg (25.7-33.7); MCHC 34.4 g/dl (32.0-36.0); MEAN CELL VOLUME 84.8 fl (80-96); MEAN PLT VOLUME 6.7 fl (7.5-11.1); MONO % 5.9 % (3.8-10.2); NEUT % 84.2 % (42.8-82.8); PLATELET COUNT 387 10^3/uL (134-434); RBC 3.64 M/mm3 (3.60-5.2); RDW 14.8 % (11.6-15.6); WHITE BLOOD COUNT 8.9 K/mm3 (4.0-10.0)
[2022-10-01] MEDS ORDERED: TRASTUZUMAB-ANNS 410 MG in SODIUM CHLORIDE 250 ML IVPB ONE (11:00)
[2022-10-01 11:14] LABS: POTASSIUM 3.7 mmol/L (3.5-5.1)
[2022-10-01 11:16] LABS: CALCIUM 9.2 mg/dL (8.5-10.1)
[2022-10-01 11:17] LABS: ALBUMIN 3.4 g/dl (3.4-5.0); BLOOD UREA NITROGEN 7.7 mg/dL (7-18)
[2022-10-01 11:20] LABS: BILIRUBIN,DIRECT 0.1 mg/dL (0.0-0.2)
[2022-10-01 11:21] LABS: BILIRUBIN,TOTAL 0.3 mg/dL (0.2-1); CREATININE 0.6 mg/dL (0.55-1.3)
[2022-10-01 11:23] LABS: TOT PROT 6.4 g/dl (6.4-8.2)
[2022-10-01] MEDS ORDERED: DOCETAXEL 132 MG in SODIUM CHLORIDE 250 ML IV ONE (11:30)
[2022-10-01] MEDS ORDERED: SODIUM CHLORIDE IVPB ONE (12:00)
[2022-10-01] MEDS ORDERED: CYCLOPHOSPHAMIDE IVPB ONE (12:00)
[2022-10-01] MEDS ORDERED: PANTOPRAZOLE 40 MG TABLET PO ONE (15:45)
[2022-10-01 16:48] VITALS: BP 133/90; PULSE 90; RESP 18; TEMP 98.7
[2022-10-01] MEDS ORDERED: PORTA CATH FLUSH 10 ML IVPUSH PRN (16:48)
== END 2022-10-01 15:45 | disposition home or self-care (01) ==
LOC: JONCCHEMO 10:20 → J7W 10:23 → JONCCHEMO 15:45
PROVIDERS: ATTEND Internal Medicine Hematology & Oncology
DX: Z51.11 Encounter for antineoplastic chemotherapy (principal); C50.911 Malignant neoplasm of unspecified site of right female breast; Z17.0 Estrogen receptor positive status [ER+]
CPT/HCPCS: 36415; 80048; 80076; 85025; 96367; 96375; 96413; 96417; J1453; J2469; J9306; Q5117

== ENCOUNTER 2022-10-02 15:40 | Day surgery (SDC) | payer OTHER ==
[~2022-10-02 15:40] MED LIST changes: -DEXAMETHASONE SODIUM PHOSPHATE 10 MG in SODIUM CHLORIDE 50 ML IVPB ONE; -FOSAPREPITANT DIMEGLUMINE 150 MG in SODIUM CHLORIDE 145 ML IVPB ONE; -PALONOSETRON HCL 0.25 MG/5 ML VIAL IVPUSH ONE; +PEGFILGRASTIM-CBQV (UDENYCA) 6 MG/0.6 ML SYRINGE SQ ONE
[2022-10-02 15:57] VITALS: BP 113/82; PULSE 62; RESP 18; TEMP 98.2
== END 2022-10-02 16:15 | disposition home or self-care (01) ==
LOC: JONCCHEMO 15:40 → J7W 15:41 → JONCCHEMO 16:15
PROVIDERS: ATTEND Internal Medicine Hematology & Oncology
DX: C50.911 Malignant neoplasm of unspecified site of right female breast (principal); Z17.0 Estrogen receptor positive status [ER+]; Z76.89 Persons encountering health services in other specified circumstances
CPT/HCPCS: 96372; Q5111

== ENCOUNTER 2022-10-22 09:38 | Day surgery (SDC) | payer OTHER ==
[2022-10-22] MEDS ORDERED: FOSAPREPITANT DIMEGLUMINE 150 MG in SODIUM CHLORIDE 145 ML IVPB ONE (10:00)
[2022-10-22] MEDS ORDERED: DEXAMETHASONE SODIUM PHOSPHATE 10 MG in SODIUM CHLORIDE 50 ML IVPB ONE (10:00)
[2022-10-22] MEDS ORDERED: PALONOSETRON HCL 0.25 MG/5 ML VIAL IVPUSH ONE (10:00)
[2022-10-22 10:16] LABS: BASO % 0.1 % (0-2.0); HEMATOCRIT 32.2 % (32.4-45.2); HEMOGLOBIN 10.8 GM/dL (10.7-15.3); LYMPH % 11.1 % (8-40); MCH 29.6 pg (25.7-33.7); MCHC 33.6 g/dl (32.0-36.0); MEAN CELL VOLUME 88.1 fl (80-96); MEAN PLT VOLUME 6.6 fl (7.5-11.1); NEUT % 80.8 % (42.8-82.8); PLATELET COUNT 344 10^3/uL (134-434); RBC 3.65 M/mm3 (3.60-5.2); RDW 16.7 % (11.6-15.6); WHITE BLOOD COUNT 7.5 K/mm3 (4.0-10.0)
[2022-10-22] MEDS ORDERED: PERTUZUMAB 420 MG in SODIUM CHLORIDE 250 ML IVPB ONE (10:30)
[2022-10-22 10:54] LABS: POTASSIUM 4.1 mmol/L (3.5-5.1)
[2022-10-22 10:57] LABS: CALCIUM 9.1 mg/dL (8.5-10.1)
[2022-10-22 10:58] LABS: ALBUMIN 3.4 g/dl (3.4-5.0); BLOOD UREA NITROGEN 9.1 mg/dL (7-18)
[2022-10-22] MEDS ORDERED: TRASTUZUMAB-ANNS 410 MG in SODIUM CHLORIDE 250 ML IVPB ONE (11:00)
[2022-10-22 11:02] LABS: BILIRUBIN,TOTAL 0.4 mg/dL (0.2-1); TOT PROT 6.4 g/dl (6.4-8.2)
[2022-10-22 11:05] LABS: BILIRUBIN,DIRECT 0.1 mg/dL (0.0-0.2)
[2022-10-22 11:06] LABS: CREATININE 0.6 mg/dL (0.55-1.3)
[2022-10-22 15:21] VITALS: RESP 18; TEMP 98.3
[2022-10-22] MEDS ORDERED: PORTA CATH FLUSH 10 ML IVPUSH PRN (15:33)
[2022-10-22 15:44] VITALS: BP 119/73; PULSE 69
== END 2022-10-22 13:50 | disposition home or self-care (01) ==
LOC: JONCCHEMO 09:38 → J7W 09:39 → JONCCHEMO 13:50
PROVIDERS: ATTEND Internal Medicine Hematology & Oncology
PROC: 3E04305 Introduction of Other Antineoplastic into Central Vein, Percutaneous Approach (ICD-10-PCS; principal; 2022-10-22)
PROC: 3E043GC Introduction of Other Therapeutic Substance into Central Vein, Percutaneous Approach (ICD-10-PCS; 2022-10-22)
DX: Z51.11 Encounter for antineoplastic chemotherapy (principal); C50.911 Malignant neoplasm of unspecified site of right female breast; Z17.0 Estrogen receptor positive status [ER+]
CPT/HCPCS: 36415; 80048; 80076; 85025; 96375; 96413; 96417; J2469; J9306; Q5117

== ENCOUNTER 2022-11-12 10:43 | Day surgery (SDC) | payer OTHER ==
[~2022-11-12 10:43] MED LIST changes: +DEXAMETHASONE SODIUM PHOSPHATE 10 MG in SODIUM CHLORIDE 50 ML IVPB ONE; +PALONOSETRON HCL 0.25 MG/5 ML VIAL IVPUSH ONE; -PEGFILGRASTIM-CBQV (UDENYCA) 6 MG/0.6 ML SYRINGE SQ ONE; +PERTUZUMAB 420 MG in SODIUM CHLORIDE 250 ML IVPB ONE; +TRASTUZUMAB-ANNS 410 MG in SODIUM CHLORIDE 250 ML IVPB ONE
[2022-11-12 11:36] LABS: BASO % 0.6 % (0-2.0); HEMATOCRIT 34.8 % (32.4-45.2); HEMOGLOBIN 11.7 GM/dL (10.7-15.3); MCH 28.9 pg (25.7-33.7); MCHC 33.7 g/dl (32.0-36.0); MEAN CELL VOLUME 85.6 fl (80-96); MEAN PLT VOLUME 7.1 fl (7.5-11.1); NEUT % 55.4 % (42.8-82.8); PLATELET COUNT 281 10^3/uL (134-434); RBC 4.06 M/mm3 (3.60-5.2); WHITE BLOOD COUNT 4.4 K/mm3 (4.0-10.0)
[2022-11-12 12:04] LABS: POTASSIUM 3.8 mmol/L (3.5-5.1)
[2022-11-12 12:06] LABS: CALCIUM 8.5 mg/dL (8.5-10.1)
[2022-11-12 12:07] LABS: ALBUMIN 3.6 g/dl (3.4-5.0); BLOOD UREA NITROGEN 6.6 mg/dL (7-18)
[2022-11-12 12:10] LABS: BILIRUBIN,DIRECT 0.1 mg/dL (0.0-0.2); CREATININE 0.5 mg/dL (0.55-1.3)
[2022-11-12 12:11] LABS: BILIRUBIN,TOTAL 0.4 mg/dL (0.2-1); TOT PROT 6.3 g/dl (6.4-8.2)
[2022-11-12 17:36] VITALS: BP 125/79; PULSE 65; RESP 18; TEMP 98.8
[2022-11-12] MEDS ORDERED: PORTA CATH FLUSH 10 ML IVPUSH PRN (17:36)
== END 2022-11-12 14:30 | disposition home or self-care (01) ==
LOC: JONCCHEMO 10:43 → J7W 10:44 → JONCCHEMO 14:30
PROVIDERS: ATTEND Internal Medicine Hematology & Oncology
PROC: 3E04305 Introduction of Other Antineoplastic into Central Vein, Percutaneous Approach (ICD-10-PCS; principal; 2022-11-12)
PROC: 3E043GC Introduction of Other Therapeutic Substance into Central Vein, Percutaneous Approach (ICD-10-PCS; 2022-11-12)
DX: Z51.11 Encounter for antineoplastic chemotherapy (principal); C50.911 Malignant neoplasm of unspecified site of right female breast; Z17.0 Estrogen receptor positive status [ER+]
CPT/HCPCS: 36415; 80048; 80076; 85025; 96375; 96413; 96417; J2469; J9306; Q5117

== ENCOUNTER 2022-12-03 10:43 | Day surgery (SDC) | payer OTHER ==
[~2022-12-03 10:43] MED LIST changes: -PERTUZUMAB 420 MG in SODIUM CHLORIDE 250 ML IVPB ONE
[2022-12-03 11:17] LABS: BASO % 0.6 % (0-2.0); EOS % 3.8 % (0-4.5); HEMOGLOBIN 12.3 GM/dL (10.7-15.3); LYMPH % 22.7 % (8-40); MCH 28.7 pg (25.7-33.7); MCHC 33.1 g/dl (32.0-36.0); MEAN CELL VOLUME 86.5 fl (80-96); MEAN PLT VOLUME 7.3 fl (7.5-11.1); MONO % 5.6 % (3.8-10.2); NEUT % 67.3 % (42.8-82.8); PLATELET COUNT 286 10^3/uL (134-434); RBC 4.27 M/mm3 (3.60-5.2); RDW 14.1 % (11.6-15.6); WHITE BLOOD COUNT 6.4 K/mm3 (4.0-10.0)
[2022-12-03 11:57] LABS: POTASSIUM 3.8 mmol/L (3.5-5.1)
[2022-12-03 11:59] LABS: ALBUMIN 3.6 g/dl (3.4-5.0); BLOOD UREA NITROGEN 6.6 mg/dL (7-18); CALCIUM 8.7 mg/dL (8.5-10.1)
[2022-12-03 12:02] LABS: BILIRUBIN,DIRECT 0.1 mg/dL (0.0-0.2); CREATININE 0.6 mg/dL (0.55-1.3)
[2022-12-03 12:03] LABS: BILIRUBIN,TOTAL 0.4 mg/dL (0.2-1); TOT PROT 6.6 g/dl (6.4-8.2)
[2022-12-03] MEDS ORDERED: PORTA CATH FLUSH 10 ML IVPUSH PRN (16:50)
[2022-12-03 16:51] VITALS: BP 130/82; PULSE 75; RESP 18; TEMP 98
== END 2022-12-03 12:45 | disposition home or self-care (01) ==
LOC: JONCCHEMO 10:43
PROVIDERS: ATTEND Internal Medicine Hematology & Oncology
DX: Z51.11 Encounter for antineoplastic chemotherapy (principal); C50.911 Malignant neoplasm of unspecified site of right female breast; Z17.0 Estrogen receptor positive status [ER+]
CPT/HCPCS: 36415; 80048; 80076; 85025; 96375; 96413; J2469; Q5117

== ENCOUNTER 2022-12-24 04:44 | Day surgery (SDC) | payer OTHER ==
[2022-12-19 17:57] VITALS: BMI 26.5
[~2022-12-24 04:44] MED LIST changes: -DEXAMETHASONE SODIUM PHOSPHATE 10 MG in SODIUM CHLORIDE 50 ML IVPB ONE; +LIDOCAINE HCL 1%, 10 MG/ML (20ML VIAL) NR ONE; -PALONOSETRON HCL 0.25 MG/5 ML VIAL IVPUSH ONE; -TRASTUZUMAB-ANNS 410 MG in SODIUM CHLORIDE 250 ML IVPB ONE
[2022-12-24] MEDS ORDERED: ISOSULFAN BLUE 50 MG/5 ML VIAL SQ ONE (07:48)
[2022-12-24] MEDS ORDERED: LIDOCAINE HCL 1%, 10 MG/ML (20ML VIAL) ONE ×2 (07:48→09:14)
[2022-12-24] MEDS ORDERED: oxyCODONE HCL 5 MG TABLET PO PRN ×2 (08:58)
[2022-12-24] MEDS ORDERED: ONDANSETRON 4 MG/2 ML VIAL IVPUSH PRN (08:58)
[2022-12-24] MEDS ORDERED: PROMETHAZINE HCL 25 MG/1 ML VIAL IVPB PRN (08:58)
[2022-12-24] MEDS ORDERED: ACETAMINOPHEN 1000 MG/100 ML BAG IVPB PRN (08:59)
[2022-12-24] MEDS ORDERED: LACTATED RINGERS SOLUTION 1,000 ML IV SCH (09:00)
[2022-12-24] MEDS ORDERED: FENTANYL CITRATE/PF 50 MCG/ML VIAL ONE ×5 (09:41→12:26)
[2022-12-24] MEDS ORDERED: DEXAMETHASONE SOD PHOSPHATE 4 MG/1 ML VIAL ONE (09:41)
[2022-12-24] MEDS ORDERED: PROPOFOL 20 ML ONE (09:41)
[2022-12-24] MEDS ORDERED: ceFAZolin SODIUM 1 GM VIAL ONE (09:41)
[2022-12-24] MEDS ORDERED: MIDAZOLAM HCL 2 MG/2 ML SINGLE DOSE VIAL ONE (09:41)
[2022-12-24] MEDS ORDERED: KETOROLAC TROMETHAMINE 30 MG/1 ML VIAL ONE (09:41)
[2022-12-24] MEDS ORDERED: LIDOCAINE HCL/PF 2% SDV 5ML VIAL ONE (09:41)
[2022-12-24] MEDS ORDERED: ONDANSETRON 4 MG/2 ML VIAL ONE (09:41)
[2022-12-24] MEDS ORDERED: SEVOFLURANE 250 ML BTL ONE (09:42)
[2022-12-24] MEDS ORDERED: ceFAZolin SODIUM 1 GM VIAL IVPB ONE (10:16)
[2022-12-24] MEDS ORDERED: LIDOCAINE HCL 1%, 10 MG/ML (20ML VIAL) INF ONE ×2 (10:42)
[2022-12-24] MEDS ORDERED: GLYCOPYRROLATE 0.2 MG/1 ML VIAL ONE (10:55)
[2022-12-24 13:34] VITALS: BP 126/76; PULSE 61; RESP 16; TEMP 96.8
== END 2022-12-24 16:09 | disposition home or self-care (01) ==
LOC: JASU-SURG 04:44
PROVIDERS: ATTEND Surgery
PROC: C71L1ZZ Planar Nuclear Medicine Imaging of Upper Chest Lymphatics using Technetium 99m (Tc-99m) (ICD-10-PCS; 2022-12-24)
PROC: 0HBT0ZZ Excision of Right Breast, Open Approach (ICD-10-PCS; principal; 2022-12-24 10:00)
PROC: 07B50ZX Excision of Right Axillary Lymphatic, Open Approach, Diagnostic (ICD-10-PCS; 2022-12-24 10:00)
DX: C50.911 Malignant neoplasm of unspecified site of right female breast (principal)
CPT/HCPCS: 19281; 76098-TC-FY; 78195-TC; 81025; 88307-TC; 88341-TC; 88342-TC; 94760; A9541

== ENCOUNTER 2023-01-15 14:47 | Day surgery (SDC) | payer OTHER ==
[~2023-01-15 14:47] MED LIST changes: +ADO TRASTUZUMAB EMTANSINE IVPB ONE; -LIDOCAINE HCL 1%, 10 MG/ML (20ML VIAL) NR ONE; +[UNRECOGNIZED DRUG - OTHER] IVPB ONE
[2023-01-15 15:27] LABS: BASO % 0.6 % (0-2.0); EOS % 4.3 % (0-4.5); HEMATOCRIT 39.4 % (32.4-45.2); HEMOGLOBIN 13.3 GM/dL (10.7-15.3); LYMPH % 39.7 % (8-40); MCH 27.2 pg (25.7-33.7); MCHC 33.7 g/dl (32.0-36.0); MEAN CELL VOLUME 80.8 fl (80-96); MEAN PLT VOLUME 7.3 fl (7.5-11.1); MONO % 4.9 % (3.8-10.2); NEUT % 50.5 % (42.8-82.8); PLATELET COUNT 343 10^3/uL (134-434); RBC 4.87 M/mm3 (3.60-5.2); RDW 14.3 % (11.6-15.6); WHITE BLOOD COUNT 6.8 K/mm3 (4.0-10.0)
[2023-01-15 15:37] LABS: POTASSIUM 3.5 mmol/L (3.5-5.1)
[2023-01-15 15:39] LABS: CALCIUM 9.3 mg/dL (8.5-10.1)
[2023-01-15 15:40] LABS: ALBUMIN 3.7 g/dl (3.4-5.0); BLOOD UREA NITROGEN 9.1 mg/dL (7-18)
[2023-01-15 15:43] LABS: BILIRUBIN,DIRECT 0.1 mg/dL (0.0-0.2); CREATININE 0.6 mg/dL (0.55-1.3)
[2023-01-15 15:44] LABS: BILIRUBIN,TOTAL 0.3 mg/dL (0.2-1); TOT PROT 6.9 g/dl (6.4-8.2)
[2023-01-15] MEDS ORDERED: [UNRECOGNIZED DRUG - OTHER] IVPB ONE (17:00)
[2023-01-15] MEDS ORDERED: ADO TRASTUZUMAB EMTANSINE IVPB ONE (17:00)
[2023-01-15 18:41] VITALS: BP 123/75; PULSE 63; RESP 18
[2023-01-15] MEDS ORDERED: PORTA CATH FLUSH 10 ML IVPUSH PRN (18:41)
== END 2023-01-15 18:50 | disposition home or self-care (01) ==
LOC: JONCCHEMO 14:47 → J7W 14:49 → JONCCHEMO 18:50
PROVIDERS: ATTEND Internal Medicine Hematology & Oncology
DX: Z51.11 Encounter for antineoplastic chemotherapy (principal); C50.919 Malignant neoplasm of unspecified site of unspecified female breast; Z17.0 Estrogen receptor positive status [ER+]
CPT/HCPCS: 36415; 80048; 80076; 85025; 96413; J9354

== ENCOUNTER 2023-02-05 12:15 | Day surgery (SDC) | payer OTHER ==
[~2023-02-05 12:15] MED LIST changes: -ADO TRASTUZUMAB EMTANSINE IVPB ONE; +SODIUM CHLORIDE IVPB ONE; +TRASTUZUMAB ANNS IVPB ONE; -[UNRECOGNIZED DRUG - OTHER] IVPB ONE
[2023-02-05 13:07] LABS: BASO % 0.7 % (0-2.0); EOS % 3.6 % (0-4.5); HEMATOCRIT 37.6 % (32.4-45.2); HEMOGLOBIN 12.7 GM/dL (10.7-15.3); LYMPH % 29.8 % (8-40); MCH 27.1 pg (25.7-33.7); MCHC 33.8 g/dl (32.0-36.0); MEAN CELL VOLUME 80.1 fl (80-96); MEAN PLT VOLUME 7.6 fl (7.5-11.1); MONO % 6.2 % (3.8-10.2); NEUT % 59.7 % (42.8-82.8); PLATELET COUNT 364 10^3/uL (134-434); RBC 4.69 M/mm3 (3.60-5.2); RDW 13.8 % (11.6-15.6); WHITE BLOOD COUNT 4.7 K/mm3 (4.0-10.0)
[2023-02-05 13:46] LABS: POTASSIUM 3.7 mmol/L (3.5-5.1)
[2023-02-05 13:49] LABS: ALBUMIN 3.5 g/dl (3.4-5.0); BLOOD UREA NITROGEN 6.7 mg/dL (7-18)
[2023-02-05 13:51] LABS: BILIRUBIN,DIRECT 0.1 mg/dL (0.0-0.2)
[2023-02-05 13:53] LABS: BILIRUBIN,TOTAL 0.4 mg/dL (0.2-1); TOT PROT 6.8 g/dl (6.4-8.2)
[2023-02-05 13:57] LABS: CREATININE 0.6 mg/dL (0.55-1.3)
[2023-02-05 18:11] VITALS: BP 120/76; PULSE 80; RESP 18; TEMP 98.1
[2023-02-05] MEDS ORDERED: PORTA CATH FLUSH 10 ML IVPUSH PRN (18:11)
== END 2023-02-05 17:00 | disposition home or self-care (01) ==
LOC: JONCCHEMO 12:15 → J7W 12:15 → JONCCHEMO 17:00
PROVIDERS: ATTEND Internal Medicine Hematology & Oncology
DX: Z51.11 Encounter for antineoplastic chemotherapy (principal); C50.519 Malignant neoplasm of lower-outer quadrant of unspecified female breast
CPT/HCPCS: 36415; 80048; 80076; 84703; 85025; 96413; Q5117

== ENCOUNTER 2023-02-15 16:27 | Emergency (ER) | payer OTHER ==
[2023-02-15 16:42] VITALS: RESP 16; BMI 25.9
[2023-02-15] MEDS ORDERED: ACETAMINOPHEN 1000 MG/100 ML BAG IVPB ONE (17:20)
[2023-02-15] MEDS ORDERED: SODIUM CHLORIDE 0.9% 500 ML INFUS.BAG IV ONE (17:20)
[2023-02-15] MEDS ORDERED: methylPREDNISolone NA SUCC 125 MG/2 ML VIAL IVPB ONE (17:21)
[2023-02-15] MEDS ORDERED: methylPREDNISolone NA SUCC 125 MG/2 ML VIAL ONE (17:38)
[2023-02-15] MEDS ORDERED: ACETAMINOPHEN INJECTION 100 ML IVPB ONE (17:38)
[2023-02-15] MEDS ORDERED: ALBUTEROL SO4 2.5/IPRATROPIUM 0.5 INH SOL 3 ML VIAL.NEB. NEB ONE (17:38)
[2023-02-15] MEDS: ALBUTEROL SO4 2.5/IPRATROPIUM 0.5 INH SOL 3 ML VIAL.NEB. NEB SCH ×4 (17:45→20:49)
[2023-02-15 18:20] LABS: BASO % 0.3 % (0-2.0); EOS % 3.5 % (0-4.5); HEMATOCRIT 37.2 % (32.4-45.2); HEMOGLOBIN 12.3 GM/dL (10.7-15.3); LYMPH % 5.6 % (8-40); MCH 26.9 pg (25.7-33.7); MCHC 33.1 g/dl (32.0-36.0); MEAN CELL VOLUME 81.3 fl (80-96); MEAN PLT VOLUME 7.3 fl (7.5-11.1); MONO % 6.7 % (3.8-10.2); NEUT % 83.9 % (42.8-82.8); PLATELET COUNT 232 10^3/uL (134-434); RBC 4.58 M/mm3 (3.60-5.2); RDW 14.6 % (11.6-15.6)
[2023-02-15 18:40] LABS: POTASSIUM 3.7 mmol/L (3.5-5.1)
[2023-02-15 18:42] LABS: CALCIUM 9.4 mg/dL (8.5-10.1)
[2023-02-15 18:43] LABS: ALBUMIN 3.6 g/dl (3.4-5.0); BLOOD UREA NITROGEN 6.4 mg/dL (7-18)
[2023-02-15 18:46] LABS: CREATININE 0.7 mg/dL (0.55-1.3)
[2023-02-15 18:48] LABS: BILIRUBIN,TOTAL 0.4 mg/dL (0.2-1); TOT PROT 6.9 g/dl (6.4-8.2)
[2023-02-15 20:10] VITALS: BP 122/63; PULSE 98; TEMP 98.6
== END 2023-02-15 20:52 | disposition home or self-care (01) ==
LOC: JER 16:27 → JERFT 16:27 → JER 20:52
PROC: 3E033NZ Introduction of Analgesics, Hypnotics, Sedatives into Peripheral Vein, Percutaneous Approach (ICD-10-PCS; principal; 2023-02-15)
PROC: 3E033GC Introduction of Other Therapeutic Substance into Peripheral Vein, Percutaneous Approach (ICD-10-PCS; 2023-02-15)
DX: U07.1 COVID-19 (principal); J45.909 Unspecified asthma, uncomplicated; R50.9 Fever, unspecified; R11.0 Nausea; R05.9 Cough, unspecified; R09.81 Nasal congestion; J34.89 Other specified disorders of nose and nasal sinuses; M79.10 Myalgia, unspecified site
CPT/HCPCS: 0241U-QW; 36415; 71046-TC-FY; 80053; 84703; 85025; 87040; 99284-25

== ENCOUNTER 2023-02-26 11:02 | Day surgery (SDC) | payer OTHER ==
[~2023-02-26 11:02] MED LIST changes: -SODIUM CHLORIDE IVPB ONE; -TRASTUZUMAB ANNS IVPB ONE; +TRASTUZUMAB-ANNS 410 MG in SODIUM CHLORIDE 250 ML IVPB ONE
[2023-02-26 11:37] LABS: BASO % 0.6 % (0-2.0); EOS % 4.9 % (0-4.5); HEMATOCRIT 38.7 % (32.4-45.2); HEMOGLOBIN 12.7 GM/dL (10.7-15.3); LYMPH % 17.8 % (8-40); MCH 27.1 pg (25.7-33.7); MCHC 32.8 g/dl (32.0-36.0); MEAN CELL VOLUME 82.5 fl (80-96); MONO % 8.9 % (3.8-10.2); NEUT % 67.8 % (42.8-82.8); PLATELET COUNT 257 10^3/uL (134-434); RBC 4.69 M/mm3 (3.60-5.2); RDW 14.5 % (11.6-15.6)
[2023-02-26 11:46] LABS: POTASSIUM 3.8 mmol/L (3.5-5.1)
[2023-02-26 11:48] LABS: CALCIUM 9.5 mg/dL (8.5-10.1)
[2023-02-26 11:49] LABS: ALBUMIN 3.6 g/dl (3.4-5.0); BLOOD UREA NITROGEN 6.4 mg/dL (7-18)
[2023-02-26 11:51] LABS: BILIRUBIN,DIRECT 0.1 mg/dL (0.0-0.2)
[2023-02-26 11:52] LABS: BILIRUBIN,TOTAL 0.5 mg/dL (0.2-1); CREATININE 0.6 mg/dL (0.55-1.3)
[2023-02-26 11:54] LABS: TOT PROT 6.9 g/dl (6.4-8.2)
[2023-02-26 14:38] VITALS: TEMP 98.3
[2023-02-26 14:50] VITALS: BP 132/85; PULSE 63; RESP 18
[2023-02-26] MEDS ORDERED: PORTA CATH FLUSH 10 ML IVPUSH PRN (14:50)
== END 2023-02-26 13:30 | disposition home or self-care (01) ==
LOC: JONCCHEMO 11:02 → J7W 11:03 → JONCCHEMO 13:30
PROVIDERS: ATTEND Internal Medicine Hematology & Oncology
DX: Z51.11 Encounter for antineoplastic chemotherapy (principal); C50.519 Malignant neoplasm of lower-outer quadrant of unspecified female breast
CPT/HCPCS: 36415; 80048; 80076; 85025; 96413; Q5117

== ENCOUNTER 2023-03-20 11:48 | Day surgery (SDC) | payer OTHER ==
[2023-03-20 12:57] LABS: BASO % 0.7 % (0-2.0); EOS % 4.5 % (0-4.5); HEMOGLOBIN 12.7 GM/dL (10.7-15.3); LYMPH % 18.5 % (8-40); MCH 28.4 pg (25.7-33.7); MCHC 33.4 g/dl (32.0-36.0); MEAN CELL VOLUME 85.1 fl (80-96); MEAN PLT VOLUME 7.3 fl (7.5-11.1); MONO % 8.2 % (3.8-10.2); NEUT % 68.1 % (42.8-82.8); PLATELET COUNT 250 10^3/uL (134-434); RBC 4.47 M/mm3 (3.60-5.2); RDW 15.5 % (11.6-15.6); WHITE BLOOD COUNT 3.4 K/mm3 (4.0-10.0)
[2023-03-20 13:20] LABS: POTASSIUM 4.1 mmol/L (3.5-5.1)
[2023-03-20 13:22] LABS: BLOOD UREA NITROGEN 8.7 mg/dL (7-18); CALCIUM 8.9 mg/dL (8.5-10.1)
[2023-03-20 13:23] LABS: ALBUMIN 3.6 g/dl (3.4-5.0)
[2023-03-20 13:26] LABS: BILIRUBIN,DIRECT 0.1 mg/dL (0.0-0.2); CREATININE 0.5 mg/dL (0.55-1.3)
[2023-03-20 13:28] LABS: BILIRUBIN,TOTAL 0.4 mg/dL (0.2-1); TOT PROT 6.9 g/dl (6.4-8.2)
[2023-03-20] MEDS ORDERED: PORTA CATH FLUSH 10 ML IVPUSH PRN (17:05)
[2023-03-20 17:06] VITALS: BP 140/78; PULSE 60; RESP 20; TEMP 97.5
== END 2023-03-20 15:30 | disposition home or self-care (01) ==
LOC: JONCCHEMO 11:48 → J7W 11:49 → JONCCHEMO 15:30
PROVIDERS: ATTEND Internal Medicine Hematology & Oncology
DX: Z51.11 Encounter for antineoplastic chemotherapy (principal); C50.519 Malignant neoplasm of lower-outer quadrant of unspecified female breast
CPT/HCPCS: 36415; 80048; 80076; 85025; 96413; Q5117

== ENCOUNTER 2023-04-09 10:49 | Day surgery (SDC) | payer OTHER ==
[2023-04-09 11:13] LABS: BASO % 0.6 % (0-2.0); EOS % 4.3 % (0-4.5); HEMOGLOBIN 12.4 GM/dL (10.7-15.3); LYMPH % 24.4 % (8-40); MCH 29.1 pg (25.7-33.7); MCHC 34.3 g/dl (32.0-36.0); MEAN CELL VOLUME 84.7 fl (80-96); MEAN PLT VOLUME 7.1 fl (7.5-11.1); NEUT % 61.7 % (42.8-82.8); PLATELET COUNT 243 10^3/uL (134-434); RBC 4.25 M/mm3 (3.60-5.2); RDW 14.4 % (11.6-15.6); WHITE BLOOD COUNT 3.8 K/mm3 (4.0-10.0)
[2023-04-09 11:36] LABS: ALBUMIN 3.7 g/dl (3.4-5.0); BLOOD UREA NITROGEN 5.7 mg/dL (7-18)
[2023-04-09 11:38] LABS: BILIRUBIN,DIRECT 0.1 mg/dL (0.0-0.2)
[2023-04-09 11:39] LABS: CREATININE 0.5 mg/dL (0.55-1.3)
[2023-04-09 11:40] LABS: BILIRUBIN,TOTAL 0.4 mg/dL (0.2-1); TOT PROT 6.7 g/dl (6.4-8.2)
[2023-04-09] MEDS: TRASTUZUMAB-ANNS 410 MG in SODIUM CHLORIDE 250 ML IVPB ONE (13:09)
[2023-04-09] MEDS: PORTA CATH FLUSH 10 ML IVPUSH PRN (13:45)
[2023-04-09 14:31] VITALS: RESP 18; TEMP 98.5
[2023-04-09 14:36] VITALS: BP 120/72; PULSE 77
== END 2023-04-09 14:00 | disposition home or self-care (01) ==
LOC: J7W 10:49 → JONCCHEMO 10:49
PROVIDERS: ATTEND Internal Medicine Hematology & Oncology
DX: Z51.11 Encounter for antineoplastic chemotherapy (principal); C50.511 Malignant neoplasm of lower-outer quadrant of right female breast
CPT/HCPCS: 36415; 80048; 80076; 85025; 96413; Q5117

== ENCOUNTER 2023-04-30 11:17 | Day surgery (SDC) | payer OTHER ==
[2023-04-30 11:45] LABS: BASO % 0.9 % (0-2.0); EOS % 4.4 % (0-4.5); HEMATOCRIT 34.9 % (32.4-45.2); HEMOGLOBIN 12.2 GM/dL (10.7-15.3); LYMPH % 22.7 % (8-40); MCHC 34.9 g/dl (32.0-36.0); MEAN CELL VOLUME 86.1 fl (80-96); MEAN PLT VOLUME 7.4 fl (7.5-11.1); MONO % 5.9 % (3.8-10.2); NEUT % 66.1 % (42.8-82.8); PLATELET COUNT 238 10^3/uL (134-434); RBC 4.06 M/mm3 (3.60-5.2)
[2023-04-30 12:11] LABS: POTASSIUM 3.7 mmol/L (3.5-5.1)
[2023-04-30 12:13] LABS: CALCIUM 8.7 mg/dL (8.5-10.1)
[2023-04-30 12:14] LABS: ALBUMIN 3.4 g/dl (3.4-5.0); BLOOD UREA NITROGEN 8.3 mg/dL (7-18)
[2023-04-30 12:17] LABS: BILIRUBIN,DIRECT 0.1 mg/dL (0.0-0.2); CREATININE 0.5 mg/dL (0.55-1.3)
[2023-04-30 12:18] LABS: BILIRUBIN,TOTAL 0.3 mg/dL (0.2-1); TOT PROT 6.5 g/dl (6.4-8.2)
[2023-04-30] MEDS: TRASTUZUMAB-ANNS 410 MG in SODIUM CHLORIDE 250 ML IVPB ONE (13:34)
[2023-04-30 14:05] VITALS: RESP 18; TEMP 98.2
[2023-04-30] MEDS: PORTA CATH FLUSH 10 ML IVPUSH PRN (14:18)
[2023-04-30 14:19] VITALS: BP 134/79; PULSE 63
== END 2023-04-30 14:15 | disposition home or self-care (01) ==
LOC: JONCCHEMO 11:17 → J7W 11:18 → JONCCHEMO 14:15
PROVIDERS: ATTEND Internal Medicine Hematology & Oncology
DX: Z51.11 Encounter for antineoplastic chemotherapy (principal); C50.511 Malignant neoplasm of lower-outer quadrant of right female breast
CPT/HCPCS: 36415; 80048; 80076; 85025; 96413; Q5117

== ENCOUNTER 2023-05-21 11:45 | Day surgery (SDC) | payer OTHER ==
[2023-05-21 12:13] LABS: BASO % 1.1 % (0-2.0); EOS % 4.4 % (0-4.5); HEMATOCRIT 38.2 % (32.4-45.2); HEMOGLOBIN 12.6 GM/dL (10.7-15.3); LYMPH % 22.4 % (8-40); MCH 28.8 pg (25.7-33.7); MCHC 33.1 g/dl (32.0-36.0); MEAN CELL VOLUME 86.9 fl (80-96); MEAN PLT VOLUME 7.1 fl (7.5-11.1); MONO % 5.2 % (3.8-10.2); NEUT % 66.9 % (42.8-82.8); PLATELET COUNT 252 10^3/uL (134-434); RBC 4.39 M/mm3 (3.60-5.2); RDW 13.2 % (11.6-15.6); WHITE BLOOD COUNT 4.4 K/mm3 (4.0-10.0)
[2023-05-21 12:40] LABS: POTASSIUM 3.8 mmol/L (3.5-5.1)
[2023-05-21 12:43] LABS: CALCIUM 8.8 mg/dL (8.5-10.1)
[2023-05-21 12:44] LABS: ALBUMIN 3.6 g/dl (3.4-5.0); BLOOD UREA NITROGEN 8.2 mg/dL (7-18)
[2023-05-21 12:46] LABS: BILIRUBIN,DIRECT 0.1 mg/dL (0.0-0.2)
[2023-05-21 12:47] LABS: CREATININE 0.6 mg/dL (0.55-1.3)
[2023-05-21 12:48] LABS: TOT PROT 6.7 g/dl (6.4-8.2)
[2023-05-21 12:49] LABS: BILIRUBIN,TOTAL 0.4 mg/dL (0.2-1)
[2023-05-21] MEDS: TRASTUZUMAB-ANNS 410 MG in SODIUM CHLORIDE 250 ML IVPB ONE (14:48)
[2023-05-21] MEDS: PORTA CATH FLUSH 10 ML IVPUSH PRN (15:30)
[2023-05-21 17:22] VITALS: TEMP 98.3
[2023-05-21 17:32] VITALS: BP 124/79; PULSE 67; RESP 20
[2023-05-22 08:11] LABS: FOLLICLE STIMULATING HORMONE 56.3 mIU/mL (.); LUTEINIZING HORMONE 27.9 mIU/mL (.)
== END 2023-05-21 15:30 | disposition home or self-care (01) ==
LOC: JONCCHEMO 11:45 → J7W 11:46 → JONCCHEMO 15:30
PROVIDERS: ATTEND Internal Medicine Hematology & Oncology
DX: Z51.11 Encounter for antineoplastic chemotherapy (principal); C50.511 Malignant neoplasm of lower-outer quadrant of right female breast
CPT/HCPCS: 36415; 80048; 80076; 82306; 82670; 83001; 83002; 85025; 96413; Q5117

== ENCOUNTER 2023-06-11 11:58 | Day surgery (SDC) | payer OTHER ==
[2023-06-11 12:45] LABS: BASO % 0.5 % (0-2.0); EOS % 3.5 % (0-4.5); HEMATOCRIT 35.3 % (32.4-45.2); HEMOGLOBIN 11.9 GM/dL (10.7-15.3); MCH 29.5 pg (25.7-33.7); MCHC 33.8 g/dl (32.0-36.0); MEAN CELL VOLUME 87.2 fl (80-96); MEAN PLT VOLUME 7.2 fl (7.5-11.1); MONO % 6.4 % (3.8-10.2); NEUT % 63.6 % (42.8-82.8); PLATELET COUNT 254 10^3/uL (134-434); RBC 4.05 M/mm3 (3.60-5.2); RDW 13.2 % (11.6-15.6); WHITE BLOOD COUNT 4.1 K/mm3 (4.0-10.0)
[2023-06-11 13:02] LABS: POTASSIUM 3.6 mmol/L (3.5-5.1)
[2023-06-11 13:03] LABS: CALCIUM 8.6 mg/dL (8.5-10.1)
[2023-06-11 13:04] LABS: ALBUMIN 3.3 g/dl (3.4-5.0); BLOOD UREA NITROGEN 8.4 mg/dL (7-18)
[2023-06-11 13:07] LABS: BILIRUBIN,DIRECT 0.1 mg/dL (0.0-0.2); CREATININE 0.5 mg/dL (0.55-1.3)
[2023-06-11 13:08] LABS: BILIRUBIN,TOTAL 0.3 mg/dL (0.2-1)
[2023-06-11 13:09] LABS: TOT PROT 6.5 g/dl (6.4-8.2)
[2023-06-11] MEDS: TRASTUZUMAB-ANNS 410 MG in SODIUM CHLORIDE 250 ML IVPB ONE (14:11)
[2023-06-11] MEDS: PORTA CATH FLUSH 10 ML IVPUSH PRN (15:00)
[2023-06-11 15:03] VITALS: TEMP 97.6
[2023-06-11 15:06] VITALS: BP 121/74; PULSE 71; RESP 20
== END 2023-06-11 15:15 | disposition home or self-care (01) ==
LOC: JONCCHEMO 11:58 → J7W 12:01 → JONCCHEMO 15:15
PROVIDERS: ATTEND Internal Medicine Hematology & Oncology
DX: Z51.11 Encounter for antineoplastic chemotherapy (principal); C50.511 Malignant neoplasm of lower-outer quadrant of right female breast
CPT/HCPCS: 36415; 80048; 80076; 85025; 96413; Q5117

== ENCOUNTER 2023-07-02 08:32 | Day surgery (SDC) | payer OTHER ==
[2023-07-02 09:22] LABS: BASO % 0.5 % (0-2.0); EOS % 3.8 % (0-4.5); HEMOGLOBIN 12.1 GM/dL (10.7-15.3); LYMPH % 21.7 % (8-40); MCH 29.4 pg (25.7-33.7); MCHC 33.6 g/dl (32.0-36.0); MEAN CELL VOLUME 87.4 fl (80-96); MEAN PLT VOLUME 7.3 fl (7.5-11.1); MONO % 7.2 % (3.8-10.2); NEUT % 66.8 % (42.8-82.8); PLATELET COUNT 250 10^3/uL (134-434); RBC 4.12 M/mm3 (3.60-5.2); RDW 12.7 % (11.6-15.6)
[2023-07-02 09:39] LABS: CHLORIDE 108 mmol/L (98-107); POTASSIUM 3.4 mmol/L (3.5-5.1); SODIUM 139 mmol/L (136-145)
[2023-07-02 09:42] LABS: ALBUMIN 3.3 g/dl (3.4-5.0); ANION GAP 2 mmol/L (4-13); BLOOD UREA NITROGEN 11.9 mg/dL (7-18); CALCIUM 8.3 mg/dL (8.5-10.1); CO2 29 mmol/L (21-32); GLUCOSE,RANDOM 100 mg/dL (74-106)
[2023-07-02 09:45] LABS: BILIRUBIN,DIRECT 0.1 mg/dL (0.0-0.2); CREATININE 0.5 mg/dL (0.55-1.3); SGOT/AST 16 U/L (15-37); SGPT/ALT 18 U/L (13-61)
[2023-07-02 09:47] LABS: BILIRUBIN,TOTAL 0.3 mg/dL (0.2-1); TOT PROT 6.3 g/dl (6.4-8.2)
[2023-07-02 09:48] LABS: ALK PHOS 71 U/L (45-117)
[2023-07-02 10:23] VITALS: RESP 18; TEMP 98.3
[2023-07-02] MEDS: TRASTUZUMAB-ANNS 410 MG in SODIUM CHLORIDE 250 ML IVPB ONE (11:30)
[2023-07-02] MEDS: PORTA CATH FLUSH 10 ML IVPUSH PRN (12:10)
[2023-07-02 14:01] VITALS: BP 124/82; PULSE 62
== END 2023-07-02 12:25 | disposition home or self-care (01) ==
LOC: JONCCHEMO 08:32 → J7W 08:33 → JONCCHEMO 12:25
PROVIDERS: ATTEND Internal Medicine Hematology & Oncology
DX: Z51.11 Encounter for antineoplastic chemotherapy (principal); C50.511 Malignant neoplasm of lower-outer quadrant of right female breast
CPT/HCPCS: 36415; 80048; 80076; 85025; 96413; Q5117

== ENCOUNTER 2023-08-13 10:49 | Day surgery (SDC) | payer OTHER ==
[2023-08-13 11:23] LABS: BASO % 0.3 % (0-2.0); EOS % 1.1 % (0-4.5); HEMATOCRIT 37.4 % (32.4-45.2); HEMOGLOBIN 12.8 GM/dL (10.7-15.3); LYMPH % 21.6 % (8-40); MCH 29.9 pg (25.7-33.7); MCHC 34.3 g/dl (32.0-36.0); MEAN CELL VOLUME 87.2 fl (80-96); MEAN PLT VOLUME 7.1 fl (7.5-11.1); MONO % 5.3 % (3.8-10.2); NEUT % 71.7 % (42.8-82.8); PLATELET COUNT 243 10^3/uL (134-434); RDW 12.8 % (11.6-15.6); WHITE BLOOD COUNT 5.3 K/mm3 (4.0-10.0)
[2023-08-13 11:32] LABS: CHLORIDE 107 mmol/L (98-107); POTASSIUM 3.5 mmol/L (3.5-5.1); SODIUM 140 mmol/L (136-145)
[2023-08-13 11:34] LABS: ANION GAP 5 mmol/L (4-13); BLOOD UREA NITROGEN 8.6 mg/dL (7-18); CALCIUM 8.7 mg/dL (8.5-10.1); CO2 28 mmol/L (21-32); GLUCOSE,RANDOM 98 mg/dL (74-106)
[2023-08-13 11:35] LABS: ALBUMIN 3.7 g/dl (3.4-5.0)
[2023-08-13 11:37] LABS: CREATININE 0.6 mg/dL (0.55-1.3); SGOT/AST 17 U/L (15-37); SGPT/ALT 16 U/L (13-61)
[2023-08-13 11:39] LABS: BILIRUBIN,TOTAL 0.4 mg/dL (0.2-1); TOT PROT 6.8 g/dl (6.4-8.2)
[2023-08-13 11:40] LABS: ALK PHOS 67 U/L (45-117); BILIRUBIN,DIRECT 0.1 mg/dL (0.0-0.2)
[2023-08-13] MEDS: TRASTUZUMAB-QYYP 410 MG in SODIUM CHLORIDE 250 ML IVPB ONE (14:06)
[2023-08-13] MEDS: PORTA CATH FLUSH 10 ML IVPUSH PRN (14:40)
[2023-08-13 18:46] VITALS: BP 130/69; PULSE 80; RESP 20; TEMP 98.5
== END 2023-08-13 13:00 | disposition home or self-care (01) ==
LOC: JONCCHEMO 10:49 → J7W 10:50 → JONCCHEMO 13:00
PROVIDERS: ATTEND Student in an Organized Health Care Education/Training Program
DX: Z51.11 Encounter for antineoplastic chemotherapy (principal); C50.511 Malignant neoplasm of lower-outer quadrant of right female breast; Z17.0 Estrogen receptor positive status [ER+]
CPT/HCPCS: 36415; 80048; 80076; 85025; 96413; Q5116